=== PATIENT | female | born 1945 | race Caucasian/White ===

== ENCOUNTER 2017-07-05 20:21 | Inpatient (IN) ==
--- OUTSIDE RECORDS SUMMARY | 2017-07-05 20:32 | External Medical Summary ---
:1945 Author Organization [employer] Care Team Providers Name Role Phone Ha Jimenez Provider Role Unavailable Allergies No Known Allergies Problems Problem Type Condition Code Onset Dates Condition Status Problem Family history of diabetes mellitus V18.0 Active Problem Colon polyps 211.3 Active Problem Hyperlipidemia 272.4 Active Medications No Known Medications Results No Known Results Summary Purpose [email or web address] Submission
--- OUTSIDE RECORDS SUMMARY | 2017-07-05 20:32 | External Medical Summary ---
:1945 Author Organization [facility] Address [address] [place] [address] Care Team Providers Name Role Phone Ha Jimenez Unavailable Unavailable PROBLEMS Type Condition ICD9-CM Code [id number] Onset Condition SNOMED Code Code Dates Status Problem Colon polyps 211.3 Active 23788881 Problem Hyperlipidemia 272.4 Active 56746142 Problem Family history of V18.0 Active 062582990 diabetes mellitus Problem Anxiety and F41.8 Active 411819836 depression Problem Depression, F32.9 Active 79923945 unspecified depression type Problem Hyperlipidemia E78.5 Active 06350318 Problem Breast cancer C50.919 Active 277408535 Problem Anxiety F41.9 Active 04355865 Problem Essential I10 Active 00201844 hypertension ALLERGIES No Information ENCOUNTERS Encounter Location Date Diagnosis [facility] [address] [place] [address] Nov, Physicians [facility] [address] [place] [address] [place] [address] Jun, Physicians [facility] [address] [place] [address] [place] [address] Jun, Physicians [facility] [address] [place] [address] [address] [facility] Jun, Physicians [facility] [id number] [place] [address] [address] [facility] Jun, Physicians [facility] [address] [place] [address] [address] Jun, Physicians [facility] [id number] [place] [address] [address] Jun, Physicians [facility] [address] [place] [address] [address] Jun, Anxiety and depression Physicians [facility] [address] F41.8 [facility] [address] May, Physicians [facility] [id number] [place] [address] [address] May, Depression, unspecified Phys[facility] [address] depression type F32.9 and Anxiety F41.9 [facility] [address] [place] [address] Nov, Physicians [facility] [address] [facility] [address] [place] [address] Nov, Well woman exam Z01.419 ; Physicians [facility] PAT[facility]ICIO212 Osteopenia, unspecified location M85.80 ; Essential hypertension I10 ; Hyperlipidemia E78.5 ; Breast cancer C50.919 and Pre-diabetes R73.03 [facility] [address] [place] [address] Nov, Well woman exam Z01.419 ; Physicians [facility] PATRICIO212 Essential hypertension I10 ; Hyperlipidemia E78.5 ; Breast cancer C50.919 ; Pre-diabetes R73.03 and Osteopenia, unspecified location M85.[address] Oct, Physicians YE[facility] PATRICIO212 [facility] [address] [place] [address] Mar, Physicians YEY[facility] PATRICIO212 [facility] [address] [place] [address] Jan, Physicians [facility]ICIO[address] Sep, Chest pain R07.9 [facility] [address] [facility] [address] [place] [address] Sep, Chest pain R07.9 ; Well Physicians [facility] [address] woman exam Z01.419 ; Essential hypertension I10 ; Hyperlipidemia E78.5 ; Menopause Z78.0 ; Immunization due Z23 and Breast cancer C50.919 [facility] [address] [place] [address] Jul, Physicians [facility] [address] Jul, Physicians YEY[facility] PATRICIO212 [facility] [address] [place] [address] Jul, Physicians YEY[facility] PATRICIO212 [facility] [address] [place] [address] Jul, Well woman exam Z01.419 ; Physicians [facility] PATRICIO212 Essential hypertension I10 ; Hyperlipidemia E78.5 ; Menopause Z78.0 ; Immunization due Z23 ; Breast cancer C50.919 and Chest pain R07.9 [facility] [address] [place] [address] Jul, Encounter for general adult Physicians YE[facility] PATRICIO212 medical examination without abnormal findings Z00.00 [facility] [address] [place] [address] Jul, Physicians [facility] [id number] [place] [address] [place] [address] May, Physicians [facility] [address] [place] [address] Mar, Physicians [facility] PATRICIO[address] Jan, Physicians [facility] PAT[facility]ICIO212 [address] Jan, Physicians [facility] PATRICIO212 [address] Jun, Pre-procedural laboratory Physicians YE[facility] PATRICIO212 examination V72.63 and Pre-procedural cardiovascular examination V72.[address] Jun, Physicians [facility] [address] Jun, Pre-procedural Physicians [facility] cardiovascular examination V72.81 and Pre-procedural laboratory examination V72.[address] Mar, Physicians [facility] [address] [facility] [address] [place] [address] Mar, Abnormal mammogram 793.80 Physicians [facility] [id number] [place] [address] Mar, Abnormal mammogram 793.80 Phys[facility] [address] Mar, Abnormal mammogram 793.80 Physicians [facility] PATRICIO212 [address] Mar, Well Woman Exam V72.31 and Physicians [facility]IC[facility] Mammogram Screening V76.[address] Mar, Well Woman Exam V72.31 ; Physicians [facility] Hyperlipidemia 272.4 ; Anxiety 300.00 ; Pre-diabetes 790.29 and Need for prophylactic vaccination against other specified vaccination V03.[address] Mar, Physicians [facility] [address] Mar, Anxiety 300.00 Physicians [facility] [address] Mar, Physicians [facility] [place] [address] [address] [facility] Jan, Serum calcium elevated Physicians YE[facility] PATRICIO212 275.42 and Elevated glucose 790.29 [facility] [address] [facility] Jan, Physicians YEY[facility] PATRICIO212 [facility] [address] [place] [address] Jan, Serum calcium elevated Physicians [facility] 275.42 and Elevated glucose 790.29 [facility] [address] [facility] Jan, Physicians [facility] [place] [address] [place] [address] Jan, Physicians [facility] [place] [address] Jan, Anxiety 300.00 and Physicians [facility] Depression [address] Jan, Physicians [facility] [address] [place] [address] [place] [address] Jan, Physicians [facility] [address] [place] [address] [place] [address] Sep, Physicians [facility] [address] [place] [address] [place] [address] Sep, Hyperlipidemia 272.4 Phys[facility] [address] [place] [address] [place] [address] Sep, HTN (hypertension) 401.9 Physicians [facility] PAT[facility]ICIO212 and Hyperlipidemia 272.4 [facility] [address] [place] [address] Mar, Screening breast Physicians YE[facility] PATRICIO212 examination V76.10 ; Surgical menopause 627.4 ; Hyperlipidemia 272.4 ; Chest pain 786.50 ; Elevated BP 796.2 ; Family history of diabetes mellitus V18.0 and Mammogram Screening V76.12 [facility] [address] [place] [address] Mar, Physicians YE[facility] PATRICIO212 [address] Mar, Hyperlipidemia 272.4 Physicians YE[facility] PATRICIO212 [facility] [address] [place] [address] Mar, Screening breast Physicians YEY[facility] PATRICIO212 examination V76.10 ; Hyperlipidemia 272.4 ; Chest pain 786.50 ; Elevated BP 796.2 ; Surgical menopause 627.4 ; Family history of diabetes mellitus V18.0 and Mammogram Screening V76.12 [facility] [address] Mar, Screening breast Physicians [facility] [address] examination V76.10 ; Hyperlipidemia 272.4 ; Chest pain 786.50 ; Elevated BP 796.2 ; Surgical menopause 627.4 and Family history of diabetes mellitus V18.0 [facility] [address] Mar, Medicare annual wellness Physicians [facility] [address] visit, initial V70.0 [facility] [address] 16 Mar, 2012 Abnormal mammogram; Physicians YE[facility] PATRICIO212 unspecified 793.80 [facility] [address] 13 Mar, 2012 Physicians [facility] [address] [facility] [address] Mar, Physicians [place] [place] [address] [facility] [address] Mar, Physicians [facility] [place] [address] [facility] [address] [place] [address] Mar, Well Woman Exam V72.31 ; Physicians [place] [place] [address] Hyperlipidemia 272.4 ; Family history of diabetes mellitus V18.0 ; Colon polyps 211.3 and Mammogram Screening V76.12 [facility] [address] Mar, Well Woman Exam V72.31 ; Physicians [place] [address] Hyperlipidemia 272.4 ; Family history of diabetes mellitus V18.0 and Colon polyps 211.3 [facility] [address] Mar, Physicians [facility] [address] [facility] [address] Jan, Physicians [facility] [place] [address] [facility] [address] Nov, [place] [id number] [facility] [address] Oct, Physicians [facility] [place] [address] [facility] [address] Oct, Physicians [facility] [address] [facility] [address] Oct, Physicians [facility] [address] [facility] [address] Oct, Physicians [facility] [address] [facility] [address] Jun, Physicians [facility] [address] [facility] [address] 13 May, 2009 [facility] [address] [facility] [address] Mar, Physicians [place] [place] [address] IMMUNIZATIONS No Known Immunizations SOCIAL HISTORY Never Assessed REASON FOR VISIT px PLAN OF CARE VITAL SIGNS MEDICATIONS Unknown Medications RESULTS No Results PROCEDURES No Known procedures INSTRUCTIONS MEDICATIONS ADMINISTERED No Known Medications MEDICAL (GENERAL) HISTORY Type Description Date Medical History Rheumatic Fever at the age of 5 or 6 Medical History Cardiolite Stress Test in 2007, 2015, normal Medical History Echocardiogram August 2002, mitral valve prolapse Medical History Hyperlipdemia,attempted diet control Medical History Depression and Anxiety which she appears to have recovered from, but she went thru a rather rough year and did see Dr. 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 Walker and Dr. Odonnell, rec. yearly breast and chest wall exam and mammo, no chemo or radiation rec and pt declined aromatase inhibitor Surgical History Tonsillectomy and adenoidectomy Surgical History Total Hysterectomy and bladder tie up due to [address] Andujar Surgical History Colonoscopy, normal 2000 Surgical History Colonoscopy. Repeat 10 years, with Dr. Crews in 12/22/20102010, polyp biopsied Surgical History laser done on varicose veins x 2 - Dr.Paul Burgos Surgical History Right breast simple mastectomy - Dr. Dominic Walker 06/23/14 Hospitalization History Hysterectomy & bladder tie up 1997 Hospitalization History child x3 Hospitalization History [facility] - Right Mastectomy - Dr. Ag Walker, 06/23-06/24/14 overnight stay
--- OUTSIDE RECORDS SUMMARY | 2017-07-05 20:32 | External Medical Summary ---
:1945 Author Organization [employer] Care Team Providers Name Role Phone Ha Jimenez Provider Role Unavailable Allergies, Adverse Reactions, Alerts Substance Reaction Event Type N.K.D.A. Info Not Available Non Drug Allergy Problems Problem Type Condition Code Onset Dates Condition Status Problem Family history of diabetes mellitus V18.0 Active Problem Colon polyps 211.3 Active Problem Hyperlipidemia 272.4 Active Assessment Encounter for general adult medical Z00.00 Active examination without abnormal findings Medications Medication Code Code Instructions Start End Status Dosage System Date Date Sertraline HCl [facility] 76081995153 100MG TAKE ONE TABLET BY MOUTH ONCE DAILY Simvastatin [facility] 63760181731 10MG TAKE ONE TABLET BY MOUTH ONCE DAILY IN THE EVENING Hydrochlorothiazide [facility] 37430168019 25MG TAKE ONE TABLET BY MOUTH ONCE DAILY Aspirin [facility] [address]-14 81 MG Orally 1 tablet Once a day Procedures Procedure Coding System Code Date Medicare Annual [place], Subsequent visit CPT-4 G0439 August 12, 2015 Vital Signs Date/Time: August 12, 2015 Blood Pressure Systolic 133 mm Hg Height 65.2 in Weight 153.2 lbs BMI 25.33 Index Oximetry 97 % Cardiac Monitoring Heart Rate 81 /min Blood Pressure Diastolic 88 mm Hg Results No Known Results Summary Purpose [employer] Submission
--- OUTSIDE RECORDS SUMMARY | 2017-07-05 20:32 | External Medical Summary ---
:1945 Author Organization [facility] Address [address] [place] [address] Care Team Providers Name Role Phone Ha Jimenez Unavailable Unavailable PROBLEMS Type Condition ICD9-CM Code [id number] Onset Condition SNOMED Code Code Dates Status Problem Essential I10 Active 46674067 hypertension Problem Hyperlipidemia E78.5 Active 80386758 Problem Family history of V18.0 Active 532062071 diabetes mellitus Problem Colon polyps 211.3 Active 04760686 Problem Breast cancer C50.919 Active 181245349 Problem Hyperlipidemia 272.4 Active 20886721 ALLERGIES Unknown Allergies SOCIAL HISTORY No smoking Hx information available PLAN OF CARE VITAL SIGNS MEDICATIONS Unknown Medications RESULTS No Results PROCEDURES No Known procedures IMMUNIZATIONS No Known Immunizations
--- OUTSIDE RECORDS SUMMARY | 2017-07-05 20:32 | External Medical Summary ---
:1945 Author Organization [facility] Address [address] [place] [address] Care Team Providers Name Role Phone Ha Jimenez Unavailable Unavailable PROBLEMS Type Condition ICD9-CM Code [id number] Onset Condition SNOMED Code Code Dates Status Problem Family history of V18.0 Active 186276121 diabetes mellitus Problem Colon polyps 211.3 Active 42436366 Problem Depression, F32.9 Active 81853311 unspecified depression type Problem Anxiety F41.9 Active 45298537 Problem Breast cancer C50.919 Active 117373324 Problem Hyperlipidemia 272.4 Active 35332497 Problem Essential I10 Active 69517309 hypertension Problem Hyperlipidemia E78.5 Active 97748373 ALLERGIES No Known Allergies SOCIAL HISTORY Never Assessed PLAN OF CARE Activity Details Follow Up 4 Weeks Reason: VITAL SIGNS Weight 138.0 lbs 2017-05-03 Height 65.2 in 2017-05-03 Heart Rate 77 /min 2017-05-03 Oximetry 96 % 2017-05-03 BMI 22.82 kg/m2 2017-05-03 Blood pressure systolic 148 mm Hg 2017-05-03 Blood pressure diastolic 82 mm Hg 2017-05-03 MEDICATIONS Medication Instructions Dosage Frequency Start End Duration Status Date Date Aspirin 81 MG Orally Once a 1 tablet 24h 30 day(s) Active day Hydrochlorothiazide TAKE ONE 90 Active 25MG TABLET BY MOUTH ONCE DAILY Xanax 0.25 MG Orally Three 1 tablet May, as Active Times Daily 2018 needed Simvastatin 10MG take one 24h Active tablet by mouth once daily in the evening Temazepam 15 MG Orally Q HS 1 capsule May, as Active at 2018 needed bedtime as needed RESULTS No Results PROCEDURES No Known procedures IMMUNIZATIONS No Known Immunizations MEDICAL (GENERAL) HISTORY Type Description Date Medical [...]
--- OUTSIDE RECORDS SUMMARY | 2017-07-05 20:32 | External Medical Summary ---
:1945 Author Organization [facility] [place] Address [address] [place] [address] Care Team Providers Name Role Phone Ha Jimenez Unavailable Unavailable PROBLEMS Type Condition ICD9-CM Code [id number] Onset Condition SNOMED Code Code Dates Status Problem Colon polyps 211.3 Active 05686192 Problem Hyperlipidemia 272.4 Active 76095186 Problem Family history of V18.0 Active 125544542 diabetes mellitus Problem Anxiety and F41.8 Active 163472064 depression Problem Depression, F32.9 Active 62670103 unspecified depression type Problem Hyperlipidemia E78.5 Active 22703304 Problem Breast cancer C50.919 Active 995490652 Problem Anxiety F41.9 Active 89211188 Problem Essential I10 Active 85345600 hypertension ALLERGIES No Information ENCOUNTERS Encounter Location Date Diagnosis [facility] [address] [place] [address] Nov, Physicians [place], [address] [place] [address] Jun, Physicians [place], [address] [place] [address] Jun, Physicians [place], [address] [place] [address] Jun, Physicians YEYO PATRICIO [address] [place] [address] [place] [address] Jun, Anxiety and depression Physicians [place] [address] F41.8 [facility] [address] May, Physicians [place], [address] [place] [address] May, Depression, unspecified Physicians [place] [address] depression type F32.9 and Anxiety F41.9 [facility] [address] Nov, Physicians YEYO PATRICIO [address] [place] [address] [address] Nov, Well woman exam Z01.419 ; Physicians [place] ME[place] [id number] Osteopenia, unspecified location M85.80 ; Essential hypertension I10 ; Hyperlipidemia E78.5 ; Breast cancer C50.919 and Pre-diabetes R73.03 [facility] [address] Nov, Well woman exam Z01.419 ; Physicians YEYO PATRICIO212 Essential hypertension I10 ; Hyperlipidemia E78.5 ; Breast cancer C50.919 ; Pre-diabetes R73.03 and Osteopenia, unspecified location M85.80 [facility] [address] Oct, Physicians YEYO PATRICIO212 [facility] [address] [facility] Mar, Physicians YEYO PATRICIO212 [facility] [address] [facility] Jan, Physicians YEYO PATRICIO212 [facility] [address] [place] [address] Sep, Chest pain R07.9 Physicians YEYO PATRICIO212 [facility] [address] [facility] Sep, Chest pain R07.9 ; Well Physicians YEYO PATRICIO212 woman exam Z01.419 ; Essential hypertension I10 ; Hyperlipidemia E78.5 ; Menopause Z78.0 ; Immunization due Z23 and Breast cancer C50.919 [facility] [address] Jul, Physicians YEYO PATRICIO212 [facility] [address] [place] [address] Jul, Physicians YEYO PATRICIO212 [facility] [address] Jul, Physicians YEYO PATRICIO212 [facility] [address] Jul, Well woman exam Z01.419 ; Physicians YEYO PATRICIO212 Essential hypertension I10 ; Hyperlipidemia E78.5 ; Menopause Z78.0 ; Immunization due Z23 ; Breast cancer C50.919 and Chest pain R07.9 [facility] [address] 13 Jul, 2015 Encounter for general adult Physicians YEYO PATRICIO medical examination without abnormal findings Z00.00 [facility] [address] 11 Jul, 2015 Physicians YEYO PATRICIO [facility] [address] [facility] May, Physicians YEYO PATRICIO212 [facility] [address] [place] [address] Mar, Physicians YEYO PATRICIO [facility] [address] [place] [address] Jan, Physicians YEYO PATRICIO [address] [place] [address] [place] [address] Jan, Physicians YEYO PATRICIO [address] Jun, Pre-procedural laboratory Physicians YEYO PATRICIO examination V72.63 and Pre-procedural cardiovascular examination V72.[address] Jun, Physicians YEYO PATRICIO212 [address] Jun, Pre-procedural Physicians YEYO PATRICIO212 cardiovascular examination V72.81 and Pre-procedural laboratory examination V72.[address] Mar, Physicians YEYO PATRICIO [address] [facility] [address] [place] [address] Mar, Abnormal mammogram 793.80 Physicians YEYO PATRICIO[address] [place] [address] Mar, Abnormal mammogram 793.80 Physicians YEYO PATRICIO [address] [place] [address] [place] [address] Mar, Abnormal mammogram 793.80 Physicians YEYO PATRICIO[address] [place] [address] [place] [address] Mar, Well Woman Exam V72.31 and Physicians YEYO PATRICIO Mammogram Screening V76.[address] Mar, Well Woman Exam V72.31 ; Physicians YEYO PATRICIO212 Hyperlipidemia 272.4 ; Anxiety 300.00 ; Pre-diabetes 790.29 and Need for prophylactic vaccination against other specified vaccination V03.[address] Mar, Physicians YEYO PATRICIO212 [address] Mar, Anxiety 300.00 Physicians YEYO PATRICIO212 [address] Mar, Physicians YEYO PATRICIO212 [address] Jan, Serum calcium elevated Physicians YEYO PATRICIO 275.42 and Elevated glucose 790.[address] Jan, Physicians [place], [place] [address] [place] [address] [place] [address] Jan, Serum calcium elevated Physicians YEYO PATRICIO [facility] 275.42 and Elevated glucose 790.29 [facility] [address] [place] [address] Jan, Physicians YEYO PATRICIO [address] [place] [address] Jan, Physicians YEYO PATRICIO [address] [place] [address] Jan, Anxiety 300.00 and Physicians YEYO PATRICIO [address] Depression [address] Jan, Physicians YEYO PATRICIO [address] [place] [address] Jan, Physicians YEYO PATRICIO [address] [place] [address] Sep, Physicians YEYO PATRICIO [address] [place] [address] Sep, Hyperlipidemia 272.4 Physicians YEYO PATRICIO [address] [place] [address] [place] [address] Sep, HTN (hypertension) 401.9 Physicians YEYO PATRICIO [facility] and Hyperlipidemia 272.4 [facility] [address] [place] [address] Mar, Screening breast Physicians YEYO PATRICIO [facility] examination V76.10 ; Surgical menopause 627.4 ; Hyperlipidemia 272.4 ; Chest pain 786.50 ; Elevated BP 796.2 ; Family history of diabetes mellitus V18.0 and Mammogram Screening V76.[address] Mar, Physicians YEYO PATRICIO [address] [place] [address] Mar, Hyperlipidemia 272.4 Physicians YEYO PATRICIO [address] [place] [address] [place] [address] Mar, Screening breast Physicians YEYO PATRICIO [facility] examination V76.10 ; Hyperlipidemia 272.4 ; Chest pain 786.50 ; Elevated BP 796.2 ; Surgical menopause 627.4 ; Family history of diabetes mellitus V18.0 and Mammogram Screening V76.12 [facility] [address] [place] [address] Mar, Screening breast Physicians YEYO PATRICIO [facility] examination V76.10 ; Hyperlipidemia 272.4 ; Chest pain 786.50 ; Elevated BP 796.2 ; Surgical menopause 627.4 and Family history of diabetes mellitus V18.0 [facility] [address] Mar, Medicare annual wellness Physicians YEYO PATRICIO [address] visit, initial V70.0 [facility] [address] 16 Mar, 2012 Abnormal mammogram; Physicians YEYO PATRICIO212 unspecified 793.80 [facility] [address] Mar, Physicians YEYO PATRICIO [address] [facility] [address] Mar, Physicians YEYO PATRICIO [facility] [address] Mar, Physicians YEYO PATRICIO [address] [facility] [address] Mar, Well Woman Exam V72.31 ; Physicians YEYO PATRICIO212 Hyperlipidemia 272.4 ; Family history of diabetes mellitus V18.0 ; Colon polyps 211.3 and Mammogram Screening V76.12 [facility] [address] Mar, Well Woman Exam V72.31 ; Physicians YEYO PATRICIO [address] Hyperlipidemia 272.4 ; Family history of diabetes mellitus V18.0 and Colon polyps 211.3 [facility] [address] Mar, Physicians YEYO PATRICIO [address] [facility] [address] Jan, Physicians YEYO PATRICIO [address] [facility] [address] Nov, [place] YEYO MEIER [phone] [facility] [address] Oct, Physicians YEYO PATRICIO [address] [facility] [address] Oct, Physicians YEYO PATRICIO [address] [facility] [address] Oct, Physicians [place]IC[place] [address] [facility] [address] Oct, Physicians YEYO PATRICIO [address] [facility] [address] Jun, Physicians YEYO PATRICIO [address] [facility] [address] May, Physicians YEYO PATRICIO [address] [facility] [address] Mar, Physicians YEYO PATRICIO [address] IMMUNIZATIONS No Known Immunizations SOCIAL HISTORY Never Assessed REASON FOR VISIT Possible Dementia PLAN OF CARE VITAL SIGNS MEDICATIONS Unknown [...]
--- OUTSIDE RECORDS SUMMARY | 2017-07-05 20:32 | External Medical Summary ---
:1945 Author Organization [facility] [place] Address [address] [place] [address] Care Team Providers Name Role Phone Ha Jimenez Unavailable Unavailable PROBLEMS Type Condition ICD9-CM Code UFR59-SS Onset Condition SNOMED Code Code Dates Status Problem Colon polyps 211.3 Active 95587656 Problem Hyperlipidemia 272.4 Active 69744014 Problem Family history of V18.0 Active 907252130 diabetes mellitus Problem Anxiety and F41.8 Active 055896479 depression Problem Depression, F32.9 Active 80458792 unspecified depression type Problem Hyperlipidemia E78.5 Active 14567596 Problem Breast cancer C50.919 Active 020271855 Problem Anxiety F41.9 Active 51174849 Problem Essential I10 Active 21220904 hypertension ALLERGIES No Information ENCOUNTERS Encounter Location Date Diagnosis [address] Nov, Physicians [place] [id number] [place] [address] Jun, Physicians [place], [address] Jun, Anxiety and depression Physicians [place] [address] F[address] May, Physicians YEYO PATRICIO [id number] [place] [address] May, Depression, unspecified [place] [address] depression type F32.9 and Anxiety F41.[address] Nov, Physicians [place]RIC[place] [address] Nov, Well woman exam Z01.419 ; Physicians YEY[place] PATRIC[place] [address] Osteopenia, unspecified location M85.80 ; Essential hypertension I10 ; Hyperlipidemia E78.5 ; Breast cancer C50.919 and Pre-diabetes R73.[address] Nov, Well woman exam Z01.419 ; Physicians YEYO PATRICIO212 Essential hypertension I10 ; Hyperlipidemia E78.5 ; Breast cancer C50.919 ; Pre-diabetes R73.03 and Osteopenia, unspecified location M85.80 [facility] [address] Oct, Physicians YEYO PATRICIO212 [facility] [address] Mar, Physicians YEYO PATRICIO212 [facility] [address] [facility] Jan, Physicians YEYO PATRICIO [facility] [address] [facility] Sep, Chest pain R07.9 Physicians YEYO PATRICIO212 [facility] [address] Sep, Chest pain R07.9 ; Well Physicians YEYO PATRICIO212 woman exam Z01.419 ; Essential hypertension I10 ; Hyperlipidemia E78.5 ; Menopause Z78.0 ; Immunization due Z23 and Breast cancer C50.919 [facility] [address] Jul, Physicians YEYO PATRICIO212 [facility] [address] [facility] Jul, Physicians YEYO PATRICIO212 [facility] [address] Jul, Physicians YEYO PATRICIO212 [facility] [address] Jul, Well woman exam Z01.419 ; Physicians YEYO PATRICIO212 Essential hypertension I10 ; Hyperlipidemia E78.5 ; Menopause Z78.0 ; Immunization due Z23 ; Breast cancer C50.919 and Chest pain R07.9 [facility] [address] 13 Jul, 2015 Encounter for general adult Physicians YEYO PATRICIO medical examination without abnormal findings Z00.00 [facility] [address] 11 Jul, 2015 Physicians YEYO PATRICIO [facility] [address] [facility] May, Physicians YE[facility]O PATRICIO [facility] [address] Mar, Physicians YEYO PATRICIO [facility] [address] Jan, Physicians YEYO PATRICIO [facility] [address] [place] [address] Jan, Physicians [place], [place] [address] [place] [address] [place] [address] Jun, Pre-procedural laboratory Physicians YEYO PATRICIO examination V72.63 and Pre-procedural cardiovascular examination V72.81 [facility] [address] [place] [address] Jun, Physicians YEYO PATRICIO212 [address] Jun, Pre-procedural Physicians YEYO PATRICIO cardiovascular examination V72.81 and Pre-procedural laboratory examination V72.[address] Mar, Physicians YEYO PATRICIO[address] [place] [address] Mar, Abnormal mammogram 793.80 Physicians YEYO PATRICIO212 [address] Mar, Abnormal mammogram 793.80 Physicians YEYO PATRICIO[address] [place] [address] Mar, Abnormal mammogram 793.80 Physicians YEYO PATRICIO212 [address] Mar, Well Woman Exam V72.31 and Physicians YEYO PATRICIO Mammogram Screening V76.12 [facility] [address] [place] [address] Mar, Well Woman Exam V72.31 ; Physicians YEYO PATRICIO Hyperlipidemia 272.4 ; Anxiety 300.00 ; Pre-diabetes 790.29 and Need for prophylactic vaccination against other specified vaccination V03.[address] Mar, Physicians YEYO PATRICIO212 [address] Mar, Anxiety 300.00 Physicians YEYO PATRICIO212 [address] Mar, Physicians YEYO PATRICIO212 [facility] [address] [place] [address] Jan, Serum calcium elevated Physicians YEYO PATRICIO 275.42 and Elevated glucose 790.[address] Jan, Physicians YEYO PATRICIO [address] Jan, Serum calcium elevated Physicians YEYO PATRICIO 275.42 and Elevated glucose 790.[address] Jan, Physicians YEYO PATRICIO212 [address] Jan, Physicians YEYO PATRICIO [address] Jan, Anxiety 300.00 and Physicians YEYO PATRICIO Depression [address] Jan, Physicians YEYO PATRICIO [address] Jan, Physicians YEYO PATRICIO [address] Sep, Physicians YEYO PATRICIO [address] Sep, Hyperlipidemia 272.4 Physicians YEYO PATRICIO [address] Sep, HTN (hypertension) 401.9 Physicians YEYO PATRICIO and Hyperlipidemia 272.[address] Mar, Screening breast Physicians YEYO PATRICIO examination V76.10 ; Surgical menopause 627.4 ; Hyperlipidemia 272.4 ; Chest pain 786.50 ; Elevated BP 796.2 ; Family history of diabetes mellitus V18.0 and Mammogram Screening V76.[address] Mar, Physicians YEYO PATRICIO [address] Mar, Hyperlipidemia 272.4 Physicians YEYO PATRICIO [address] Mar, Screening breast Physicians YEYO PATRICIO examination V76.10 ; Hyperlipidemia 272.4 ; Chest pain 786.50 ; Elevated BP 796.2 ; Surgical menopause 627.4 ; Family history of diabetes mellitus V18.0 and Mammogram Screening V76.[address] Mar, Screening breast Physicians YEYO PATRICIO examination V76.10 ; Hyperlipidemia 272.4 ; Chest pain 786.50 ; Elevated BP 796.2 ; Surgical menopause 627.4 and Family history of diabetes mellitus V18.[address] Mar, Medicare annual wellness Physicians YEYO PATRICIO visit, initial V70.[address] 16 Mar, 2012 Abnormal mammogram; Physicians YEYO PATRICIO212 unspecified 793.80 [facility] [address] Mar, Physicians YEYO PATRICIO [address] [place] [address] [address] Mar, Physicians YEYO PATRICIO [address] [place] [address] [address] Mar, Physicians YEYO PATRICIO [address] [place] [address] [address] Mar, Well Woman Exam V72.31 ; Physicians YEYO PATRICIO212 Hyperlipidemia 272.4 ; Family history of diabetes mellitus V18.0 ; Colon polyps 211.3 and Mammogram Screening V76.12 [facility] [address] Mar, Well Woman Exam V72.31 ; Physicians YEYO PATRICIO212 Hyperlipidemia 272.4 ; Family history of diabetes mellitus V18.0 and Colon polyps 211.3 [facility] [address] Mar, Physicians YEYO PATRICIO [address] [facility] [address] Jan, Physicians YEYO PATRICIO [address] [facility] [address] Nov[facility] [address] [facility] [address] Oct, Physicians YEYO PATRICIO [address] [place] [address] [address] [facility] Oct, Physicians YEYO PATRICIO [address] [place] [address] [address] Oct, Physicians YEYO PATRICIO [address] [facility] [address] Oct, Physicians YEYO PATRICIO [address] [facility] [address] [facility] Jun, Physicians YEYO PATRICIO [address] [facility] [address] May, Physicians YEYO PATRICIO [address] [facility] [address] Mar, Physicians YEYO PATRICIO212 IMMUNIZATIONS No Known Immunizations SOCIAL HISTORY Never Assessed REASON FOR VISIT refill PLAN OF CARE VITAL SIGNS MEDICATIONS Medication Instructions Dosage Frequency Start End Date Duration Status Date Xanax 0.25 MG Orally Three 1 tablet May, as needed Active Times Daily 2017 RESULTS No Results PROCEDURES No Known procedures INSTRUCTIONS MEDICATIONS ADMINISTERED No Known Medications MEDICAL (GENERAL) HISTORY Type Description Date Medical History Rheumatic Fever at the age of 5 or 6 Medical History Cardiolite Stress Test in 2007, 2016, normal Medical History Echocardiogram August 2002, mitral [...]
--- OUTSIDE RECORDS SUMMARY | 2017-07-05 20:33 | External Medical Summary ---
:1945 Author Organization [facility] Address [address] [place] [address] Care Team Providers Name Role Phone Ha Jimenez Unavailable Unavailable PROBLEMS Type Condition ICD9-CM Code [id number] Onset Condition SNOMED Code Code Dates Status Problem Essential I10 Active 75160993 hypertension Problem Hyperlipidemia E78.5 Active 04376402 Problem Family history of V18.0 Active 235558068 diabetes mellitus Problem Colon polyps 211.3 Active 06597666 Problem Breast cancer C50.919 Active 296322773 Problem Hyperlipidemia 272.4 Active 63989853 ALLERGIES Unknown Allergies SOCIAL HISTORY No smoking Hx information available PLAN OF CARE Activity Details Follow Up prn Reason: VITAL SIGNS MEDICATIONS Unknown Medications RESULTS No Results PROCEDURES Procedure Date Ordered Related Diagnosis Body Site DEXA BONE DENSITY Nov 30, 2016 IMMUNIZATIONS No Known Immunizations
--- OUTSIDE RECORDS SUMMARY | 2017-07-05 20:33 | External Medical Summary ---
:1945 Author Organization [employer] Care Team Providers Name Role Phone Ha Jimenez Provider Role Unavailable Allergies, Adverse Reactions, Alerts Substance Reaction Event Type N.K.D.A. Info Not Available Non Drug Allergy Problems Problem Type Condition Code Onset Dates Condition Status Assessment Menopause Z78.0 Active Assessment Essential hypertension I10 Active Assessment Hyperlipidemia E78.5 Active Problem Hyperlipidemia E78.5 Active Problem Breast cancer C50.919 Active Problem Essential hypertension I10 Active Problem Colon polyps 211.3 Active Assessment Well woman exam Z01.419 Active Problem Hyperlipidemia 272.4 Active Problem Family history of diabetes mellitus V18.0 Active Assessment Chest pain R07.9 Active Assessment Breast cancer C50.919 Active Assessment Immunization due Z23 Active Medications Medication Code Code Instructions Start End Status Dosage System Date Date Hydrochlorothiazide [facility] 90376759945 25MG Once a take one day tablet by mouth once daily Simvastatin [facility] 32657538959 10MG Once a take one day tablet by mouth once daily in the evening Aspirin [facility] [address]-34 81 MG Orally 1 tablet Once a day Sertraline HCl [facility] 57191466924 100MG Once a take one day tablet by mouth once daily Procedures Procedure Coding System Code Date COMP PROFILE CPT-4 37806 August 21, 2015 LIPID PROFILE CPT-4 21500 August 21, 2015 CBC CPT-4 66759 August 21, 2015 EKG WITH INTERPRETAT CPT-4 97117 August 21, 2015 DXA BONE DENSITY/PERIPHERAL CPT-4 26907 August 21, 2015 Prevnar 13 CPT-4 44189 August 21, 2015 CHEST XRAY 2 VIEW CPT-4 37118 August 21, 2015 PREV MED SEREST 65 CPT-4 32142 August 21, 2015 Administration Fee 0-18 yrs for 1st injection CPT-4 54135 August 21, 2015 Vital Signs Date/Time: August 21, 2015 Blood Pressure Systolic 180 mm Hg Height 65.2 in Weight 154.8 lbs BMI 25.60 Index Cardiac Monitoring Heart Rate 73 /min Blood Pressure Diastolic 81 mm Hg Results Name Result Date Reference Range Unit Abnormality Flag CBC ----BA# 0.0 [id number] 0.0-0.1 X10^3/UL ----BA% 0.9 52655210 0.0-1.0 % ----PLT 220 83593238 130-400 X10^3 ----NE# 2.8 15438069 1.4-6.5 X10^3/UL ----RDW 11.7 [id number] 11.5-15.5 % ----LY% 24.2 60958089 20.5-51.1 % ----MCHC 33.2 81362974 32.0-35.0 G/DL ----LY# 1.1 [id number] 1.2-3.4 X10^3/UL L ----MCH 32.8 41234093 27.0-33.0 PG ----MO% 9.0 69440461 1.7-9.3 % ----MCV 98.8 98215328 81.0-96.0 FL H ----MO# 0.4 [id number] 0.1-0.6 X10^3/UL ----MPV 11.4 89565165 8.9-12.7 FL ----HCT 40.1 56800105 36.0-46.0 % ----EO% 3.4 25853224 0.0-3.0 % H ----WBC 4.4 69349974 4.0-10.0 X10^3/UL ----EO# 0.2 [id number] 0.0-0.2 X10^3/UL ----HGB 13.3 14331140 11.6-16.0 G/DL ----NE% 62.3 97484368 42.2-75.2 % ----RBC 4.06 64006140 3.90-5.20 X10^6 COMPREHENSIVE CHEM PROFILE ----ALK PHOS 73 76374541 34-114 U/L ----eGFR If Non 82 [id number] >60 ml/min/1.73m^2 Am ----eGFR If Am 100 [id number] >60 ml/min/1.73m^2 ----ALT/SGPT 20 00598457 5-40 U/L ----SODIUM 140 53367956 133-145 MMOL/L ----AST/SGOT 33 16099050 5-40 U/L ----TOTAL BILI 0.63 88872317 0.00-1.00 MG/DL ----CALCIUM 9.7 64373600 8.7-10.3 MG/DL ----GLUCOSE 94 27461657 60-99 MG/DL ----GLOBULIN 2.6 85947097 2.0-4.4 G/DL ----ALBUMIN 4.4 55775779 3.2-5.2 G/DL ----CREATININE 0.7 70851455 0.4-1.1 MG/DL ----TOTAL PROTEIN 7.0 61840904 5.9-8.4 G/DL ----BUN 13 21919229 8-23 MG/DL ----CO2 29 81144026 23-31 MMOL/L ----POTASSIUM 3.9 50557321 3.3-5.1 MMOL/L ----CHLORIDE 99 22445215 96-108 MMOL/L X ray : Chest 2 views EKG LIPID PROFILE ----CHOL/HDL 2.2 92049759 4.0-6.7 RATIO L ----LDL-DIRECT 103 96529248 0-99 MG/DL H ----HDL-DIRECT 79 07670275 45-65 MG/DL H ----TRIGLYCERIDE 57 93844730 30-150 MG/DL ----CHOLESTEROL 176 59291840 50-200 MG/DL Immunizations Vaccine Administration Date Prevnar August 21, 2015 Summary Purpose [employer] Submission
--- OUTSIDE RECORDS SUMMARY | 2017-07-05 20:33 | External Medical Summary ---
:1945 Author Organization [employer] Care Team Providers Name Role Phone Ha Jimenez Provider Role Unavailable Allergies No Known Allergies Problems Problem Type Condition Code Onset Dates Condition Status Problem Family history of diabetes mellitus V18.0 Active Problem Colon polyps 211.3 Active Problem Hyperlipidemia 272.4 Active Medications No Known Medications Results No Known Results Summary Purpose [employer] Submission
--- OUTSIDE RECORDS SUMMARY | 2017-07-05 20:33 | External Medical Summary ---
:1945 Author Organization [employer] Care Team Providers Name Role Phone Ha Jimenez Provider Role Unavailable Allergies No Known Allergies Problems Problem Type Condition ICD-9 Code Onset Dates Condition Status Problem Family history of diabetes V18.0 Active mellitus Problem Colon polyps 211.3 Active Problem Hyperlipidemia 272.4 Active Assessment Pre-procedural cardiovascular V72.81 Active examination Assessment Pre-procedural laboratory V72.63 Active examination Medications No Known Medications Results No Known Results Summary Purpose [employer] Submission
--- OUTSIDE RECORDS SUMMARY | 2017-07-05 20:33 | External Medical Summary ---
:1945 Author Organization [employer] Care Team Providers Name Role Phone Ha Jimenez Provider Role Unavailable Allergies No Known Allergies Problems Problem Type Condition Code Onset Dates Condition Status Problem Hyperlipidemia E78.5 Active Problem Breast cancer C50.919 Active Problem Essential hypertension I10 Active Problem Colon polyps 211.3 Active Problem Hyperlipidemia 272.4 Active Problem Family history of diabetes mellitus V18.0 Active Medications No Known Medications Results No Known Results Summary Purpose [employer] Submission
--- OUTSIDE RECORDS SUMMARY | 2017-07-05 20:33 | External Medical Summary ---
:1945 Author Organization [facility] Address [address] [place] [address] Care Team Providers Name Role Phone Ha Jimenez Unavailable Unavailable PROBLEMS Type Condition ICD9-CM Code [id number] Onset Condition SNOMED Code Code Dates Status Problem Essential I10 Active 71443298 hypertension Problem Hyperlipidemia E78.5 Active 72763192 Problem Family history of V18.0 Active 731808784 diabetes mellitus Problem Colon polyps 211.3 Active 12916997 Problem Breast cancer C50.919 Active 283325948 Problem Hyperlipidemia 272.4 Active 47966148 ALLERGIES Unknown Allergies SOCIAL HISTORY No smoking Hx information available PLAN OF CARE VITAL SIGNS MEDICATIONS Unknown Medications RESULTS No Results PROCEDURES No Known procedures IMMUNIZATIONS No Known Immunizations
--- OUTSIDE RECORDS SUMMARY | 2017-07-05 20:33 | External Medical Summary ---
[...] history of diabetes mellitus V18.0 Active Medications Medication Code Code Instructions Start End Date Status Dosage System Date Sertraline HCl [facility] [id number] 100MG Orally take one Once a day tablet by mouth once daily Results No Known Results Summary Purpose [employer] Submission
--- OUTSIDE RECORDS SUMMARY | 2017-07-05 20:33 | External Medical Summary ---
:1944 Author Organization [employer] Care Team Providers Name Role Phone Ha Jimenez Provider Role Unavailable Allergies No Known Allergies Problems Problem Type Condition ICD-9 Code Onset Dates Condition Status Problem Family history of diabetes V18.0 Active mellitus Problem Colon polyps 211.3 Active Problem Hyperlipidemia 272.4 Active Medications No Known Medications Results No Known Results Summary Purpose [employer] Submission
--- OUTSIDE RECORDS SUMMARY | 2017-07-05 20:33 | External Medical Summary ---
:1945 Author Organization [employer] Care Team Providers Name Role Phone Ha Jimenez Provider Role Unavailable Allergies No Known Allergies Problems Problem Type Condition Code Onset Dates Condition Status Problem Family history of diabetes mellitus V18.0 Active Problem Colon polyps 211.3 Active Problem Hyperlipidemia 272.4 Active Medications No Known Medications Results No Known Results Summary Purpose [email or web address] Submission
--- OUTSIDE RECORDS SUMMARY | 2017-07-05 20:33 | External Medical Summary ---
:1944 Author Organization [employer] Care Team Providers Name Role Phone Ha Jimenez Provider Role Unavailable Allergies No Known Allergies Problems Problem Type Condition ICD-9 Code Onset Dates Condition Status Problem Family history of diabetes V18.0 Active mellitus Problem Colon polyps 211.3 Active Problem Hyperlipidemia 272.4 Active Medications No Known Medications Results No Known Results Summary Purpose [employer] Submission
--- OUTSIDE RECORDS SUMMARY | 2017-07-05 20:33 | External Medical Summary ---
:1944 Author Organization [facility] Care Team Providers Name Role Phone Ha Jimenez Provider Role Unavailable Allergies No Known Allergies Problems Problem Type Condition ICD-9 Code Onset Dates Condition Status Problem Family history of diabetes V18.0 Active mellitus Problem Colon polyps 211.3 Active Problem Hyperlipidemia 272.4 Active Assessment Abnormal mammogram 793.80 Active Medications No Known Medications Procedures Procedure Coding System Code Date COMPUTER AIDED DX CPT-4 67173 Apr 15, 2014 DX MAMMO, UNILATERAL CPT-4 27145 Apr 15, 2014 Results No Known Results Summary Purpose [employer] Submission
--- OUTSIDE RECORDS SUMMARY | 2017-07-05 20:33 | External Medical Summary ---
:1944 Author Organization [employer] Care Team Providers Name Role Phone Ha Jimenez Provider Role Unavailable Allergies No Known Allergies Problems Problem Type Condition ICD-9 Code Onset Dates Condition Status Problem Family history of diabetes V18.0 Active mellitus Problem Colon polyps 211.3 Active Problem Hyperlipidemia 272.4 Active Medications No Known Medications Results No Known Results Summary Purpose [employer] Submission
--- OUTSIDE RECORDS SUMMARY | 2017-07-05 20:33 | External Medical Summary ---
:1945 Author Organization [facility] Address [address] [place] [address] Care Team Providers Name Role Phone Ha Jimenez Unavailable Unavailable PROBLEMS Type Condition ICD9-CM Code [id number] Onset Condition SNOMED Code Code Dates Status Problem Colon polyps 211.3 Active 08914987 Problem Hyperlipidemia 272.4 Active 65972062 Problem Family history of V18.0 Active 224130454 diabetes mellitus Problem Anxiety and F41.8 Active 333156452 depression Problem Depression, F32.9 Active 34063954 unspecified depression type Problem Hyperlipidemia E78.5 Active 66214225 Problem Breast cancer C50.919 Active 877786458 Problem Anxiety F41.9 Active 94328433 Problem Essential I10 Active 31773677 hypertension ALLERGIES No Known Allergies ENCOUNTERS Encounter Location Date Diagnosis [address] Nov, [facility] [id number] [place] [address] [place] [address] Jun, Anxiety and depression [facility] [address] May, [facility] [address] May, Depression, unspecified [facility] [address] depression type F32.9 and Anxiety F41.[address] Nov, [facility] [address] Nov, Well woman exam Z01.419 ; [facility] [place] [place] [address] Osteopenia, unspecified location M85.80 ; Essential hypertension I10 ; Hyperlipidemia E78.5 ; Breast cancer C50.919 and Pre-diabetes R73.03 [facility] [address] [place] [address] Nov, Well woman exam Z01.419 ; [facility] [place] [place] [address] Essential hypertension I10 ; Hyperlipidemia E78.5 ; Breast cancer C50.919 ; Pre-diabetes R73.03 and Osteopenia, unspecified location M85.80 [facility] [address] Oct, [facility]212 [facility] [address] [place] [address] Mar, [facility]212 [facility] [address] [facility] Jan, [facility]212 [facility] [address] [place] [address] Sep, Chest pain R07.9 [facility]212 [facility] [address] Sep, Chest pain R07.9 ; Well [facility]212 woman exam Z01.419 ; Essential hypertension I10 ; Hyperlipidemia E78.5 ; Menopause Z78.0 ; Immunization due Z23 and Breast cancer C50.919 [facility] [address] Jul, [facility]212 [facility] [address] [place] [address] Jul, [facility]212 [facility] [address] [place] [address] Jul, [facility] [address] [facility] [address] [facility] Jul, Well woman exam Z01.419 ; [facility] [place] [address] Essential hypertension I10 ; Hyperlipidemia E78.5 ; Menopause Z78.0 ; Immunization due Z23 ; Breast cancer C50.919 and Chest pain R07.9 [facility] [address] Jul, Encounter for general adult [facility] [address] medical examination without abnormal findings Z00.00 [facility] [address] [place] [address] Jul, Phys[facility]212 [facility] [address] [facility] May, [facility] [address] Mar, [facility] [address] [place] [address] Jan, [facility] [address] [place] [address] Jan, Phys[facility]212 [facility] [address] [place] [address] Jun, Pre-procedural laboratory [facility]212 examination V72.63 and Pre-procedural cardiovascular examination V72.[address] Jun, [facility] [address] Jun, Pre-procedural [facility] cardiovascular examination V72.81 and Pre-procedural laboratory examination V72.[address] Mar, [facility] [address] [place] [address] Mar, Abnormal mammogram 793.80 [facility] [address] [place] [address] Mar, Abnormal mammogram 793.80 [facility] [address] [place] [address] Mar, Abnormal mammogram 793.80 [facility] [address] [place] [address] Mar, Well Woman Exam V72.31 and [facility]212 Mammogram Screening V76.[address] Mar, Well Woman Exam V72.31 ; [facility]212 Hyperlipidemia 272.4 ; Anxiety 300.00 ; Pre-diabetes 790.29 and Need for prophylactic vaccination against other specified vaccination V03.[address] Mar, [facility] [address] Mar, Anxiety 300.00 [facility]212 [address] Mar, [facility] [address] [place] [address] Jan, Serum calcium elevated [facility] 275.42 and Elevated glucose 790.[address] Jan, Phys[facility] [place]212 [address] Jan, Serum calcium elevated [facility] 275.42 and Elevated glucose 790.[address] Jan, [facility] [place]212 [address] Jan, [facility] [address] Jan, Anxiety 300.00 and [facility] [address] Depression [address] Jan, [facility] [address] Jan, [facility] [address] Sep, [facility] [address] Sep, Hyperlipidemia 272.4 [facility] [address] Sep, HTN (hypertension) 401.9 [facility] and Hyperlipidemia 272.[address] Mar, Screening breast [facility] [address] examination V76.10 ; Surgical menopause 627.4 ; Hyperlipidemia 272.4 ; Chest pain 786.50 ; Elevated BP 796.2 ; Family history of diabetes mellitus V18.0 and Mammogram Screening V76.[address] Mar, [facility] [address] Mar, Hyperlipidemia 272.4 [facility] [address] Mar, Screening breast [facility] [place] [address] examination V76.10 ; Hyperlipidemia 272.4 ; Chest pain 786.50 ; Elevated BP 796.2 ; Surgical menopause 627.4 ; Family history of diabetes mellitus V18.0 and Mammogram Screening V76.[address] Mar, Screening breast [facility] [address] examination V76.10 ; Hyperlipidemia 272.4 ; Chest pain 786.50 ; Elevated BP 796.2 ; Surgical menopause 627.4 and Family history of diabetes mellitus V18.[address] Mar, Medicare annual wellness [facility] [address] visit, initial V70.[address] Mar, Abnormal mammogram; [place] [address] unspecified 793.80 [facility] [address] Mar, Phys[facility] [address] [place] [address] Family [address] Mar, [facility] [address] [place] [address] Family [address] Mar, [facility] [id number] [place] [address] Family [address] Mar, Well Woman Exam V72.31 ; [facility]212 Hyperlipidemia 272.4 ; Family history of diabetes mellitus V18.0 ; Colon polyps 211.3 and Mammogram Screening V76.12 [place] [facility] [address] Mar, Well Woman Exam V72.31 ; Phys[facility]212 Hyperlipidemia 272.4 ; Family history of diabetes mellitus V18.0 and Colon polyps 211.3 [place] [facility] [address] Mar, [facility] [id number] [place] [address] Family [address] Jan, [facility] [id number] [place] [address] Surgery [address] Nov, [place] [id number] [facility] [address] Oct, [facility] [id number] [place] [address] Family [address] Oct, [facility] [id number] [place] [address] Family [address] Oct, [facility] [address] [place] [address] Family [address] Oct, [facility] [id number] [place] [address] Family [address] Jun, [facility] [address] [place] [address] Family [address] May, [facility] [address] [facility] [address] Mar, Phys[facility] [address] IMMUNIZATIONS No Known Immunizations SOCIAL HISTORY Never Assessed REASON FOR VISIT 1 MONTH F/U DEPRESSION/ANXIETY PLAN OF CARE Activity Details Follow Up prn Reason: VITAL SIGNS Weight 136.6 lbs 2017-06-02 Height 65.2 in 2017-06-02 Heart Rate 79 /min 2017-06-02 Oximetry 96 % 2017-06-02 BMI 22.59 kg/m2 2017-06-02 Blood pressure systolic 160 mm Hg 2017-06-02 Blood pressure diastolic 90 mm Hg 2017-06-02 MEDICATIONS Medication Instructions Dosage Frequency Start End Duration Status Date Date Temazepam 15 MG Orally QHS 1-2 May, as Active capsules 2017 needed at bedtime as needed Pristiq 50 MG Orally Once a 1 tablet 24h Active day Hydrochlorothiazide TAKE ONE 90 Active 25MG TABLET BY MOUTH ONCE DAILY Aspirin 81 MG Orally Once a 1 tablet 24h 30 day(s) Active day Simvastatin 10MG take one 24h Active tablet by mouth once daily in the evening Xanax 0.25 MG Orally Three 1 tablet May, as Active Times Daily 2017 needed RESULTS No Results PROCEDURES No Known [...]
--- OUTSIDE RECORDS SUMMARY | 2017-07-05 20:33 | External Medical Summary ---
:1945 Author Organization [employer] Care Team Providers Name Role Phone Ha Jimenez Provider Role Unavailable Allergies No Known Allergies Problems Problem Type Condition ICD-9 Code Onset Dates Condition Status Problem Family history of diabetes V18.0 Active mellitus Problem Colon polyps 211.3 Active Problem Hyperlipidemia 272.4 Active Assessment Well Woman Exam V72.31 Active Assessment Mammogram Screening V76.12 Active Medications No Known Medications Procedures Procedure Coding System Code Date COMPUTER AIDED SCR CPT-4 12044 Mar 25, 2014 BILATERAL SCR MAMMO CPT-4 91389 Mar 25, 2014 Results No Known Results Summary Purpose [employer] Submission
--- OUTSIDE RECORDS SUMMARY | 2017-07-05 20:33 | External Medical Summary ---
:1945 Author Organization [facility] [place] Address [address] [place] [address] Care Team Providers Name Role Phone Ha Jimenez Unavailable Unavailable PROBLEMS Type Condition ICD9-CM Code [id number] Onset Condition SNOMED Code Code Dates Status Problem Colon polyps 211.3 Active 83205053 Problem Hyperlipidemia 272.4 Active 05227148 Problem Family history of V18.0 Active 971843567 diabetes mellitus Problem Anxiety and F41.8 Active 263077558 depression Problem Depression, F32.9 Active 18521379 unspecified depression type Problem Hyperlipidemia E78.5 Active 56073685 Problem Breast cancer C50.919 Active 001887033 Problem Anxiety F41.9 Active 48509153 Problem Essential I10 Active 45303210 hypertension ALLERGIES No Information ENCOUNTERS Encounter Location Date Diagnosis [address] Nov, Physicians [place], [address] Jun, Physicians [place], [address] Jun, Physicians [place], [address] Jun, Anxiety [place] [address] [address] May, Physicians [place], [address] May, Depression, unspecified Physicians [place], [facility]212 depression type F32.9 and Anxiety F41.[address] Nov, Physicians [place] [address] Nov, Well woman exam Z01.419 ; [place] [address] Osteopenia, unspecified location M85.80 ; Essential hypertension I10 ; Hyperlipidemia E78.5 ; Breast cancer C50.919 and Pre-diabetes R73.03 [facility] [address] Nov, Well woman exam Z01.419 ; Physicians [place]212 Essential hypertension I10 ; Hyperlipidemia E78.5 ; Breast cancer C50.919 ; Pre-diabetes R73.03 and Osteopenia, unspecified location M85.80 [facility] [address] Oct, Physicians [place] PATRICIO212 [facility] [address] [facility] Mar, Physicians [place] PATRICIO212 [facility] [address] [facility] Jan, Physicians [place] PATRICIO212 [facility] [address] [facility] Sep, Chest pain R07.9 Physicians [place] PAT[place]ICIO212 [facility] [address] [place] [address] Sep, Chest pain R07.9 ; Well Physicians YE[place] PATRICIO212 woman exam Z01.419 ; Essential hypertension I10 ; Hyperlipidemia E78.5 ; Menopause Z78.0 ; Immunization due Z23 and Breast cancer C50.919 [facility] [address] Jul, Physicians [place] PATRICIO212 [facility] [address] [facility] Jul, Physicians YE[place] PATRICIO212 [facility] [address] Jul, Physicians YE[place] PATRICIO212 [facility] [address] Jul, Well woman exam Z01.419 ; Physicians [place]212 Essential hypertension I10 ; Hyperlipidemia E78.5 ; Menopause Z78.0 ; Immunization due Z23 ; Breast cancer C50.919 and Chest pain R07.9 [facility] [address] 13 Jul, 2015 Encounter for general adult Physicians YE[place] PATRICIO212 medical examination without abnormal findings Z00.00 [facility] [address] [place] [address] Jul, Physicians [place] PATRICIO [facility] [address] May, Physicians [place] PATRICIO [facility] [address] [facility] Mar, Physicians YEYO PATRICIO212 [facility] [address] [place] [address] Jan, Physicians [place], [place] [address] [place] [address] [place] [address] Jan, Physicians [place] PATRIC[place] [address] [place] [address] [place] [address] Jun, Pre-procedural laboratory Physicians YEYO PATRICIO examination V72.63 and Pre-procedural cardiovascular examination V72.81 [facility] [address] [place] [address] Jun, Physicians YEY[place] PATRICIO212 [facility] [address] [place] [address] Jun, Pre-procedural Physicians YEY[place] PATRICIO cardiovascular examination V72.81 and Pre-procedural laboratory examination V72.63 [facility] [address] [place] [address] Mar, Physicians [place] PATRICIO212 [address] Mar, Abnormal mammogram 793.80 Physicians YE[place] PATRICIO212 [facility] [address] [place] [address] Mar, Abnormal mammogram 793.[address] [facility]icians [place] [place] [address] Mar, Abnormal mammogram 793.80 Physicians [place] PATRICIO[address] Mar, Well Woman Exam V72.31 and Physicians [place] PATRICIO Mammogram Screening V76.[address] Mar, Well Woman Exam V72.31 ; Physicians [place] PATRICIO Hyperlipidemia 272.4 ; Anxiety 300.00 ; Pre-diabetes 790.29 and Need for prophylactic vaccination against other specified vaccination V03.[address] Mar, Physicians [place] PATRICIO212 [address] Mar, Anxiety 300.00 Physicians [place] PATRICIO212 [address] Mar, Physicians YE[place] PATRICIO212 [address] Jan, Serum calcium elevated Physicians YEYO PATRICIO 275.42 and Elevated glucose 790.29 [facility] [address] [place] [address] Jan, Physicians YE[place] PATRICIO212 [address] Jan, Serum calcium elevated Physicians YYEO PATRICIO 275.42 and Elevated glucose 790.[address] Jan, Physicians [place] [place] [address] Jan, Physicians [place] PATRIC[place] [address] [place] [address] Jan, Anxiety 300.00 and Physicians YEY[place] PATRICIO Depression [address] Jan, Physicians [place] [place] [address] Jan, Physicians [place] [place] [address] Sep, Physicians YE[place] PATRICIO[address] Sep, Hyperlipidemia 272.4 Physicians [place] [place] [address] Sep, HTN (hypertension) 401.9 Physicians YE[place] PATRICIO212 and Hyperlipidemia 272.[address] Mar, Screening breast Physicians YEYO PATRICIO212 examination V76.10 ; Surgical menopause 627.4 ; Hyperlipidemia 272.4 ; Chest pain 786.50 ; Elevated BP 796.2 ; Family history of diabetes mellitus V18.0 and Mammogram Screening V76.[address] Mar, Physicians YEY[place] PATRICIO212 [address] Mar, Hyperlipidemia 272.4 Physicians YE[place] PATRICIO[address] Mar, Screening breast Physicians YEYO PATRICIO212 examination V76.10 ; Hyperlipidemia 272.4 ; Chest pain 786.50 ; Elevated BP 796.2 ; Surgical menopause 627.4 ; Family history of diabetes mellitus V18.0 and Mammogram Screening V76.[address] Mar, Screening breast Physicians YEYO PATRICIO212 examination V76.10 ; Hyperlipidemia 272.4 ; Chest pain 786.50 ; Elevated BP 796.2 ; Surgical menopause 627.4 and Family history of diabetes mellitus V18.[address] Mar, Medicare annual wellness Physicians [place] [address] visit, initial V70.0 [facility] [address] 16 Mar, 2012 Abnormal mammogram; Physicians [place] PATRICIO212 unspecified 793.80 [facility] [address] Mar, Physicians [place] [address] [facility] [address] Mar, Physicians [place] [address] [facility] [address] Mar, Physicians [place] [address] [facility] [address] Mar, Well Woman Exam V72.31 ; Physicians [place] [address] Hyperlipidemia 272.4 ; Family history of diabetes mellitus V18.0 ; Colon polyps 211.3 and Mammogram Screening V76.12 [facility] [address] Mar, Well Woman Exam V72.31 ; Physicians [place] [address] Hyperlipidemia 272.4 ; Family history of diabetes mellitus V18.0 and Colon polyps 211.3 [facility] [address] Mar, Physicians [place] [address] [facility] [address] Jan, Physicians [place] [address] [facility] [address] Nov, [place] [phone] [facility] [address] Oct, Physicians [place] [address] [facility] [address] Oct, Physicians [place] [address] [facility] [address] Oct, Physicians [place] [address] [facility] [address] Oct, Physicians [place] [address] [facility] [address] Jun, Physicians [place] [address] [facility] [address] May, Physicians [place] [address] [facility] [address] Mar, Physicians [place] [address] IMMUNIZATIONS No Known Immunizations SOCIAL HISTORY Never Assessed REASON FOR VISIT Temazepam PLAN OF CARE VITAL SIGNS MEDICATIONS Medication Instructions Dosage Frequency Start End Date Duration Status Date Temazepam 30 MG Orally QHS 1 capsule May, as needed Active at bedtime 2017 as needed RESULTS No Results PROCEDURES No [...]
--- OUTSIDE RECORDS SUMMARY | 2017-07-05 20:33 | External Medical Summary ---
[...] Medications Procedures Procedure Coding System Code Date BX BREAST 1ST [facility] CPT-4 55792 Apr 15, 2014 Results No Known Results Summary Purpose [employer]ClinicalMinus Submission
--- OUTSIDE RECORDS SUMMARY | 2017-07-05 20:33 | External Medical Summary ---
:1945 Author Organization [employer] Care Team Providers Name Role Phone Ha Jimenez Provider Role Unavailable Allergies No Known Allergies Problems Problem Type Condition Code Onset Dates Condition Status Problem Family history of diabetes mellitus V18.0 Active Problem Colon polyps 211.3 Active Problem Hyperlipidemia 272.4 Active Medications Medication Code System Code Instructions Start Date End Date Status Dosage Zoloft [facility] [address] 100 MG Orally Jun 25, 1 tablet -30 Once a day 2014 Results No Known Results Summary Purpose eClinicalWorks Submission
--- OUTSIDE RECORDS SUMMARY | 2017-07-05 20:33 | External Medical Summary ---
:1945 Author Organization [facility] [place] Address [address] [place] [address] Care Team Providers Name Role Phone Ha Jimenez Unavailable Unavailable PROBLEMS Type Condition ICD9-CM Code [id number] Onset Condition SNOMED Code Code Dates Status Problem Colon polyps 211.3 Active 31146969 Problem Hyperlipidemia 272.4 Active 56000699 Problem Family history of V18.0 Active 131467847 diabetes mellitus Problem Anxiety and F41.8 Active 992503936 depression Problem Depression, F32.9 Active 70697741 unspecified depression type Problem Hyperlipidemia E78.5 Active 94096386 Problem Breast cancer C50.919 Active 550412585 Problem Anxiety F41.9 Active 19999361 Problem Essential I10 Active 27122122 hypertension ALLERGIES No Information ENCOUNTERS Encounter Location Date Diagnosis [facility] [address] [place] [address] Nov, Physicians [place]IC[place] [address] [place] [address] [place] [address] Jun, Physicians [place]IC[place] [address] [place] [address] [place] [address] Jun, Physicians YE[place] PATRICIO [address] [place] [address] [address] [facility] Jun, Physicians YEY[place] PATRIC[place] [id number] [place] [address] [address] [facility] Jun, Physicians YEY[place] PATRICIO [address] [place] [address] [address] Jun, Physicians [place] PAT[place]IC[place] [id number] [place] [address] [address] Jun, Physicians [place] PATRICIO [address] [place] [address] [address] Jun, Anxiety and depression Physicians [place] PATRICIO [address] F41.8 [facility] [address] May, Physicians [place] PAT[place]IC[place] [id number] [place] [address] [address] May, Depression, unspecified Physicians [place] [address] depression type F32.9 and Anxiety F41.9 [facility] [address] [place] [address] Nov, Physicians [place] [address] [facility] [address] [place] [address] Nov, Well woman exam Z01.419 ; Physicians YEYO PATRICIO212 Osteopenia, unspecified location M85.80 ; Essential hypertension I10 ; Hyperlipidemia E78.5 ; Breast cancer C50.919 and Pre-diabetes R73.03 [facility] [address] [place] [address] Nov, Well woman exam Z01.419 ; Physicians YEYO PATRICIO212 Essential hypertension I10 ; Hyperlipidemia E78.5 ; Breast cancer C50.919 ; Pre-diabetes R73.03 and Osteopenia, unspecified location M85.[address] Oct, Physicians YEYO PATRICIO212 [facility] [address] [place] [address] Mar, Physicians YEYO PATRICIO212 [facility] [address] [place] [address] Jan, Physicians YEYO PATRICIO212 [address] Sep, Chest pain R07.9 Physicians [place] [address] [facility] [address] [place] [address] Sep, Chest pain R07.9 ; Well Physicians [place] [address] woman exam Z01.419 ; Essential hypertension I10 ; Hyperlipidemia E78.5 ; Menopause Z78.0 ; Immunization due Z23 and Breast cancer C50.919 [facility] [address] [place] [address] Jul, Physicians [place] [address] Jul, Physicians YEYO PATRICIO212 [facility] [address] [place] [address] Jul, Physicians YEYO PATRICIO212 [facility] [address] [place] [address] Jul, Well woman exam Z01.419 ; Physicians YEYO PATRICIO212 Essential hypertension I10 ; Hyperlipidemia E78.5 ; Menopause Z78.0 ; Immunization due Z23 ; Breast cancer C50.919 and Chest pain R07.9 [facility] [address] [place] [address] Jul, Encounter for general adult Physicians YEYO PATRICIO212 medical examination without abnormal findings Z00.00 [facility] [address] [place] [address] Jul, Physicians [place] PATRIC[place] [id number] [place] [address] [place] [address] May, Physicians YEYO PATRICIO [address] [place] [address] Mar, Physicians YEYO PATRICIO212 [address] Jan, Physicians YEY[place] PATRICIO212 [address] Jan, Physicians YEYO PATRICIO212 [address] Jun, Pre-procedural laboratory Physicians YEYO PATRICIO212 examination V72.63 and Pre-procedural cardiovascular examination V72.[address] Jun, Physicians [place] [address] Jun, Pre-procedural Physicians YEYO PATRICIO cardiovascular examination V72.81 and Pre-procedural laboratory examination V72.[address] Mar, Physicians [place] [address] [facility] [address] [place] [address] Mar, Abnormal mammogram 793.80 Physicians [place] PATRICIO [id number] [place] [address] Mar, Abnormal mammogram 793.80 Physicians [place] [address] Mar, Abnormal mammogram 793.80 Physicians YEY[place] PATRICIO212 [address] Mar, Well Woman Exam V72.31 and Physicians YEY[place] PATRICIO Mammogram Screening V76.[address] Mar, Well Woman Exam V72.31 ; Physicians YEOY PATRICIO Hyperlipidemia 272.4 ; Anxiety 300.00 ; Pre-diabetes 790.29 and Need for prophylactic vaccination against other specified vaccination V03.[address] Mar, Physicians [place] PATRIC[place] [address] Mar, Anxiety 300.00 Physicians YE[place] PATRICIO [address] Mar, Physicians YE[place] [address] [place] [address] [address] [facility] Jan, Serum calcium elevated Physicians YEYO PATRICIO212 275.42 and Elevated glucose 790.29 [facility] [address] [facility] Jan, Physicians YEYO PATRICIO212 [facility] [address] [place] [address] Jan, Serum calcium elevated Physicians YEYO PATRICIO 275.42 and Elevated glucose 790.29 [facility] [address] [facility] Jan, Physicians YE[place] [address] [place] [address] [place] [address] Jan, Physicians YE[place] [address] [place] [address] Jan, Anxiety 300.00 and Physicians YEYO PATRICIO Depression [address] Jan, Physicians [place]IC[place] [address] [place] [address] [place] [address] Jan, Physicians YEYO PATRICIO [address] [place] [address] [place] [address] Sep, Physicians YEYO PATRICIO [address] [place] [address] [place] [address] Sep, Hyperlipidemia 272.4 Physicians YE[place] PATRICIO [address] [place] [address] [place] [address] Sep, HTN (hypertension) 401.9 Physicians YEYO PATRICIO212 and Hyperlipidemia 272.4 [facility] [address] [place] [address] Mar, Screening breast Physicians YEYO PATRICIO212 examination V76.10 ; Surgical menopause 627.4 ; Hyperlipidemia 272.4 ; Chest pain 786.50 ; Elevated BP 796.2 ; Family history of diabetes mellitus V18.0 and Mammogram Screening V76.12 [facility] [address] [place] [address] Mar, Physicians YEYO PATRICIO212 [address] Mar, Hyperlipidemia 272.4 Physicians YEYO PATRICIO212 [facility] [address] [place] [address] Mar, Screening breast Physicians YEYO PATRICIO212 examination V76.10 ; Hyperlipidemia 272.4 ; Chest pain 786.50 ; Elevated BP 796.2 ; Surgical menopause 627.4 ; Family history of diabetes mellitus V18.0 and Mammogram Screening V76.12 [facility] [address] Mar, Screening breast Physicians [place] [address] examination V76.10 ; Hyperlipidemia 272.4 ; Chest pain 786.50 ; Elevated BP 796.2 ; Surgical menopause 627.4 and Family history of diabetes mellitus V18.0 [facility] [address] Mar, Medicare annual wellness Physicians [place] [address] visit, initial V70.0 [facility] [address] 16 Mar, 2012 Abnormal mammogram; Physicians YEYO PATRICIO212 unspecified 793.80 [facility] [address] 13 Mar, 2012 Physicians [place] [address] [facility] [address] Mar, Physicians [place] [address] [facility] [address] Mar, Physicians [place] [address] [facility] [address] [place] [address] Mar, Well Woman Exam V72.31 ; Physicians [place] [address] Hyperlipidemia 272.4 ; Family history of diabetes mellitus V18.0 ; Colon polyps 211.3 and Mammogram Screening V76.12 [facility] [address] Mar, Well Woman Exam V72.31 ; Physicians [place] [address] Hyperlipidemia 272.4 ; Family history of diabetes mellitus V18.0 and Colon polyps 211.3 [facility] [address] Mar, Physicians [place] [address] [facility] [address] Jan, Physicians [place] [address] [facility] [address] Nov, [place] [address] [facility] [address] Oct, Physicians [place] [address] [facility] [address] Oct, Physicians [place] [address] [facility] [address] Oct, Physicians [place] [address] [facility] [address] Oct, Physicians [place] [address] [facility] [address] Jun, Physicians [place] [address] [facility] [address] 13 May, 2009 Physicians [place] [address] [facility] [address] Mar, Physicians [place] [address] IMMUNIZATIONS No Known Immunizations SOCIAL HISTORY Never Assessed REASON FOR VISIT UTI testing PLAN OF CARE VITAL SIGNS MEDICATIONS Unknown [...]
--- OUTSIDE RECORDS SUMMARY | 2017-07-05 20:33 | External Medical Summary ---
:1945 Author Organization eClinicalWorks Care Team Providers Name Role Phone Ha Jimenez Provider Role Unavailable Allergies No Known Allergies Problems Problem Type Condition Code Onset Dates Condition Status Problem Family history of diabetes mellitus V18.0 Active Problem Colon polyps 211.3 Active Problem Hyperlipidemia 272.4 Active Medications No Known Medications Results No Known Results Summary Purpose Diwane[employer]System Submission
--- OUTSIDE RECORDS SUMMARY | 2017-07-05 20:33 | External Medical Summary ---
:1945 Author Organization [facility] Address [address] [place] [address] Care Team Providers Name Role Phone Ha Jimenez Unavailable Unavailable PROBLEMS Type Condition ICD9-CM Code [id number] Onset Condition SNOMED Code Code Dates Status Problem Essential I10 Active 67908929 hypertension Problem Hyperlipidemia E78.5 Active 91954598 Problem Family history of V18.0 Active 891347023 diabetes mellitus Problem Colon polyps 211.3 Active 53359804 Problem Breast cancer C50.919 Active 415923000 Problem Hyperlipidemia 272.4 Active 03636030 ALLERGIES Substance Reaction Event Type Date Status N.K.D.A. Unknown Non Drug Allergy Nov, Unknown SOCIAL HISTORY No smoking Hx information available PLAN OF CARE Activity Details Follow Up 1 Year Reason: VITAL SIGNS Weight 148.4 lbs 2016-11-30 Height 65.2 in 2016-11-30 Temperature 97.8 degrees Fahrenheit 2016-11-30 Heart Rate 79 /min 2016-11-30 Oximetry 98 % 2016-11-30 BMI 24.54 kg/m2 2016-11-30 Blood pressure systolic 148 mm Hg 2016-11-30 Blood pressure diastolic 85 mm Hg 2016-11-30 MEDICATIONS Medication Instructions Dosage Frequency Start End Duration Status Date Date Simvastatin 10MG take one 24h 90 Active tablet by mouth once daily in the evening Aspirin 81 MG Orally Once a 1 tablet 24h 30 day(s) Active day Hydrochlorothiazide TAKE ONE 90 Active 25MG TABLET BY MOUTH ONCE DAILY RESULTS Name Result Date Reference Range CBC 2016-11-30 WBC 4.4 4.0-10.0 NE% 59.9 42.2-75.2 NE# 2.6 1.4-6.5 LY% 28.5 20.5-51.1 LY# 1.3 1.2-3.4 MO% 7.3 1.7-9.3 MO# 0.3 0.1-0.6 EO% 3.4 0.0-3.0 EO# 0.2 0.0-0.2 BA% 0.9 0.0-1.0 BA# 0.0 0.0-0.1 RBC 3.96 3.90-5.20 HGB 13.0 11.6-16.0 HCT 38.8 36.0-46.0 MCV 98.0 81.0-96.0 MCH 32.8 27.0-33.0 MCHC 33.5 32.0-35.0 RDW 11.6 11.5-15.5 PLT 197 130-400 MPV 11.3 8.9-12.7 COMPREHENSIVE CHEM PROFILE 2016-11-30 GLUCOSE 88 60-99 BUN 12 8-23 CREATININE 0.6 0.4-1.1 eGFR If Am 119 >60 eGFR If Non Am 98 >60 TOTAL BILI 0.82 0.00-1.00 SODIUM 140 133-145 POTASSIUM 3.6 3.3-5.1 CHLORIDE 98 96-108 CO2 30 23-31 CALCIUM 10.1 8.7-10.3 AST/SGOT 37 5-40 ALT/SGPT 18 5-40 ALK PHOS 80 34-114 TOTAL PROTEIN 7.2 5.9-8.4 ALBUMIN 4.4 3.2-5.2 GLOBULIN 2.8 2.0-4.4 LIPID PROFILE 2016-11-30 CHOLESTEROL 179 50-200 TRIGLYCERIDE 66 30-150 HDL-DIRECT 66 45-65 LDL-DIRECT 111 0-99 CHOL/HDL 2.7 4.0-6.7 HbA1C 2016-11-30 %A1C 5.4 4.0-6.0 PROCEDURES Procedure Date Ordered Related Diagnosis Body Site CBC Nov 30, 2016 COMP PROFILE Nov 30, 2016 HgB A1C Nov 30, 2016 LIPID PROFILE Nov 30, 2016 OFFICE VISITEST PT Nov 30, 2016 IMMUNIZATIONS No Known Immunizations
[2017-07-05] MEDS ORDERED: HALOPERIDOL 0.5 MG TABLET PO PRN (20:53)
[2017-07-05] MEDS ORDERED: LORazepam 0.5 MG TABLET PO PRN (20:53)
[2017-07-05] MEDS ORDERED: HALOPERIDOL 5 MG/ML INJECTION IM PRN (20:53)
[2017-07-05] MEDS: MIRTAZAPINE 15 MG TABLET PO SCH (22:46)
[2017-07-06 02:13] VITALS: BMI 23.1
--- NOTE | 2017-07-06 09:26 | History & Physical Report ---
History of Present Illness Date: 07/08/17 Chief complaint: depression HPI: Marialuisa Parrish is a 72 y/o woman seen in consultation from Dr. Richey for medical management. She was admitted to [facility] for further evaluation of depression, paranoid behaviors, confusion, and self-care failure. Of note, she has also been under a lot of stress d/t her 's decline - he is on hospice for ICH and resides at [facility]. She was admitted to [facility] on 06/30/17 for altered mental status and was placed in suicide precautions. Her sodium level was low at 125; improved to 129 on 07/03/17 and was 138 on 07/04/17. BUN = 3, cr 0.43. She also required IV K replacement d/t K of 3.0 and poor oral intake. Phos was low at 2.8. Vit B12 was 344; folate 13.6. TSH was 2.13. Hgb 11. CT of her head on 07/02/17 was negative for acute intracranial abnormalities. She had an MRI at [facility] which revealed chronic small vessel ischemic disease and leukoaraiosis, but no acute findings. Carotid sono showed [id number] atherosclerosis in cervical carotid bifurcations, R>L; no significant stenosis. A renal sono was obtained d/t elevated BP -- this showed mild prominence of right renal collecting sstem but was otherwise unremarkable. EKG there showed SR , rate 87, QTc 438. Reportedly had a sz on 07/02/17 but EEG was normal and Dr. Tobias did not see definite need for AED and felt that sz was likely provoked ( poss Xanax w/drawal). She was medically stable by 07/05/17 [address] discharged to [facility]. Marialuisa was seen in the morning of 07/06/17. 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 She became tearful, stating that her used to care for all the outdoor upkeep and she was in charge of the indoors. She recounted when she found her lying in the yard last June, which is when he had his stroke. He hasn't been able to move the left side of his body since then, and currently is on hospice. She reports that her kids want her here because of her depression and anxiety. She doesn't recall every event from her recent hospitalization, particularly her fall and seizure, which was unwitnessed but left her with bruising to her chin. She states that she used to take a diuretic but believes this was discontinued because of low sodium and potassium levels. She denies fever/chills or recent illnesses. She hasn't been eating as well and states that she's lost weight. She used to weigh close to 150 lbs, currently is 135. She's not sure of when it was she used to weigh 150. She denies n/v/d but has occasional constipation. She denies chest pain or palpitations, but states that she has a hx of mitral valve prolapse from rheumatic fever but states that it never causes her any problems. She used to have problems with leg swelling but that improved after her varicose veins were stripped. She has chronic insomnia and needs to take her sleeping pill each night. She denies urinary problems. No dizziness/lightheadedness or falls other than the one mentioned before. Review of Systems All systems PM: 10-point ROS was reviewed, no additional remarkable complaints except - Constitutional Constitutional: Present: weight loss (used to weigh 150 lbs.). Absent: chills, fever(s), headache(s) - EENMT Eyes: Present: requires corrective lenses. Absent: blurry vision Balance: Absent: vertigo Nose: Absent: obstruction, allergies Mouth/Throat: Absent: sore throat - Cardiovascular Cardiovascular: Present: hx of rheumatic fever. Absent: chest pain, palpitations (has MV problems but it never bothers her) Vascular: Present: varicosities (hx - had varicose veins removed). Absent: pedal edema - Respiratory Respiratory: Absent: cough, dyspnea - Gastrointestinal Gastrointestinal: Present: constipation (occ.). Absent: abdominal pain, diarrhea, nausea, vomiting - Genitourinary Genitourinary: Absent: dysuria - Musculoskeletal Musculoskeletal: Absent: muscle weakness - Integumentary/Breasts Integumentary: Present: other (bruise to left side of chin). Absent: rash - Neurological Neurological: Present: tremor(s) - Psychiatric Psychiatric: Present: as per HPI, behavioral changes, hallucinations (per [facility] - auditory) - Endocrine Endocrine: Absent: excessive sweating, palpitations - Hematologic/Lymphatic Hematologic/Lymphatic: Present: easy bruising - Allergic/Immunologic Allergic/Immunologic: Absent: seasonal rhinorrhea Past Medical History Rheumatic fever MVP HTN Dyslipidemia MDD Seizure on 07/02/17 B12 deficiency Insomnia Breast cancer, s/p removal Surgical History: Lymph node biopsy; Radical mastectomy in 2014; colonoscopy ( 2008); sclerotherapy of varicose vein (1999); abdominal hysterectomy (1998) Family History Updates: Positive for dementia, HTN, cirrhosis. Mother had CHF and dementia. Father had CHF and HTN. Brother and sister both living iwth HTN and DM. No family history of depression or cancer. - Social History Smoking status: Never smoker Medications Home Medications Medication Instructions Recorded Confirmed Type Aspirin 1 tab PO DAILY 07/06/17 07/06/17 History CloNIDine [Catapres] 1 tab PO BID PRN 07/06/17 07/06/17 History Cyanocobalamin (Vitamin B-12) 1 tab PO DAILY 07/06/17 07/06/17 History [Vitamin B-12] Desvenlafaxine Succinate [Pristiq 50 mg PO DAILY 07/06/17 07/06/17 History ER] LORazepam [Ativan] 0.5 mg PO BID 07/06/17 07/06/17 History Losartan [Cozaar] 50 mg PO BID 07/06/17 07/06/17 History Polyethylene Glycol 3350 17 gm PO DAILY 07/06/17 07/06/17 History Potassium Chloride 20 meq PO BID 07/06/17 07/06/17 History Sertraline HCl [Zoloft] 50 mg PO DAILY 07/06/17 07/06/17 History Simvastatin [Zocor] 10 mg PO DAILY 07/06/17 07/06/17 History Temazepam [Restoril] 15 mg PO HS PRN 07/06/17 07/06/17 History Thiamine [Vitamin B-1] 100 mg PO DAILY 07/06/17 07/06/17 History Allergies Allergy/AdvReac Type Severity Reaction Status Date / Time No Known Allergies Allergy Verified 07/06/17 00:42 Exam Vital Signs: Temperature 97.0 F 07/05/17 21:20 Pulse Rate 86 07/05/17 22:22 Respiratory Rate 18 07/05/17 22:22 Blood Pressure 164/85 H 07/05/17 21:20 Pulse Oximetry 96 07/05/17 22:22 Height/Weight/BMI: Height 1.63 m Weight 61.3 kg Body Mass Index 23.1 - Constitutional Present: no acute distress, well nourished, well developed, thin - Routine HEENT Exam Head: Absent: normocephalic (ecchymosis to left side of chin/mandible) Eye: Present: PERRL. Absent: scleral injection ENT: Present: mucous membranes moist, oropharynx clear - Routine Neck Exam Present: supple - Routine Respiratory Exam Present: CTA bilaterally - Routine Cardiovascular Exam Present: RRR, S1, S2 - Routine Abdominal Exam Present: soft, normoactive bowel sounds, non distended, non tender - Routine Extremities Exam Present: edema (trace BLE), pulses intact, normal capillary refill - Routine Back/Spine/Pelvis Exam Back/Spine: Present: full ROM - Routine Skin Exam Present: intact, dry, warm, ecchymosis (left mandible; yellow discoloration extends down neck) - Routine Neurological Exam Present: alert, oriented X3, CN II-XII intact, moving all extremities, vision grossly intact, hearing grossly intact, normal speech. Absent: motor deficit, facial asymmetry - Routine Psychiatric Exam Present: normal thought process, cooperative. Absent: normal affect (anxious; depressed) Results - Labs CBC & Chem 7: 07/07/17 07:08 07/07/17 07:08 Assessment and Plan Assessment and Plan: IMPRESSION Depression, anxiety Recent hyponatremia, hypokalemia - diuretic dc'd Ecchymosis to left mandible, POA Seizure on 07/02/17 - EEG negative B12 deficiency (B12 344 at [facility]) History of rheumatic fever MVP HTN Dyslipidemia Insomnia Breast cancer PLAN External records reviewed. Monitor BMP; if she develops HTN and/or leg swelling and is drinking fluids well we may consider re-introducing a loop diuretic but will have to monitor Na and K levels. Renal function stable. Her BP was elevated at 164/85 on admission (no other VS yet documented) - monitor trends and consider adding an antihypertensive agent or diuretic. She had B12, folate, and TSH levels checked at [facility] (folate & TSH were normal). Lipid panel was reviewed, normal. Hgb A1c was 5.5%. Medically stable. Depression/anxiety treatment per Attending. Hospitalist addendum: Seen and examined patient on same day as the above note. Agree with history, physical, assessment and plan. Comprehensive physical findings correlate to the above note. Subjective: patient complains of multiple issues including fall and overall not doing well with eating and losing weight Objective: anxious but no medical distress, just clear to auscultation cardiovascular S1 S2 with occasional ectopic neurologically intact Assessment and plan: history of her multiple medical issues. Be stable at this time and psychiatric care appears to be predominant to her needs today Documented on Dragon speech to text. Efforts to crack speech recognition errors performed, but variation may exist Resuscitation Status: Full Code - Physician Narrative Narrative: Date: 07/06/17 Time: 921 Hospital Course Summary Disclaimer: The visit summary below is not to be considered part of the above Progress Note. Hospital Course: 07/06/17 External records reviewed. Monitor BMP; if she develops HTN and/or leg swelling and is drinking fluids well we may consider re-introducing a loop diuretic but will have to monitor Na and K levels. Renal function stable. Her BP was elevated at 164/85 on admission (no other VS yet documented) - monitor trends and consider adding an antihypertensive agent or diuretic. She had B12, folate, and TSH levels checked at [facility] (folate & TSH were normal). Lipid panel was reviewed, normal. Hgb A1c was 5.5%. Medically stable. Depression/anxiety treatment per Attending.
[2017-07-06] MEDS: ARIPiprazole 2 MG TABLET PO SCH (11:18)
[2017-07-06] MEDS: LOSARTAN 50 MG TABLET PO SCH ×2 (11:20→19:38)
[2017-07-06] MEDS: CYANOCOBALAMIN (B-12) 500mcg TABLET PO SCH (11:20)
[2017-07-06] MEDS: POLYETHYL GLYCOL 3350 17gm PACKET PO SCH (11:21)
[2017-07-06] MEDS: ASPIRIN 81 MG CHEWABLE TABLET PO SCH (11:32)
--- NOTE | 2017-07-06 15:18 | 24 Hour Neuropsychiatic Eval ---
Date of Admission: 07/05/17 20:21 Chief complaint: "I'm trying to get rid of depression and anxiety" History of Present Illness: Patient is a 72-year-old , female who was transferred from [facility] to [facility] on 07/05/17 due to concerns with depression, anxiety leading to self-care failure. On interview, patient is anxious, ruminative and circumstantial. She says she feels she in a hole and she can't get out. She doesn't feel that it is safe for her to return home in this state and she is open to additional options, such as [place]. 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 She has asked neighbors to do her shopping. When she has gone out with friends, she cannot even make a decision about what to eat off the menu. She is scared to drive because of her medications and thus rarely leaves the house. Patient was seen by Dr. Foster (C/L psychiatrist) while at [facility] and reported the following: "Patient is a 72 years old female brought to the hospital due to altered mental status. She came in Monday after her doctor saw her BP was 200/100 and she was confused. He thought there was a risk of stroke. She was seeing her pain doctor and needed to pee in a cup and was nervous about it. She was shaking very bad. She states her anxiety and depression has been very severe lately in the past couple of months. Yesterday, she fell out of bed at noon and had a seizure. She hit her chin and bit her tongue. Nobody witnessed it and the nurse found her face down, blue, and foaming at mouth. The code team was called and gave her O2 and she was fine. She denies having a seizure before and doesn't remember anything afterwards. STRESSORS: Her main stressor has been dealing with her having a stroke a year ago and being in rehab and now a skilled nursing facility. He also has left sided deficits and memory problems. He usually took care of her, the house, and the bills. At [place], she came to terms that he may never come back home and it depresses her to go see him. He also got worse in Jun and her anxiety has increased from that as well. She gets anxious when she has to go outside even to the mailbox because there might be bills to pay. PSYCHIATRIC HX: Does not currently have a psychiatrist. She sees a therapist at [facility] 1x/week. States she has a previous diagnosis of Depression and Anxiety. She was on Zoloft a few years ago after having an episode of depression and stopped taking it after she was discharged. She currently gets Pristiq for her Depression and Temazepam for Insomnia from her pain rn medical inpatient services. She has been on Pristiq since 2016. She gets Xanax for Anxiety from her PCP and has been taking that since May 2017. She last took her Xanax 3 days ago and her PCP stopped it because it wasn't working. She usually took 1-3x/day. She feels like the Prisitq and Xanax have been ineffective so far. She describes her Depression as a 10/10 and Anxiety 10/10 with 10 being the most severe. She doesn't want to go outside and gets panic attacks where her heart is pounding if she has to go outside. She also gets really anxious if people are at the door or if she has to go to her mailbox. She doesn't want to do anything lately and describes anhedonia where she doesn't enjoy things she used to. She states that taking the Temazepam is the best part of her day because she can just sleep. She also endorses a lack of motivation, poor concentration, low mood since Xmas, guilt, and hopelessness. She also endorses some paranoia and hears noises outside at night. She later admits that she sometimes neglects self care and doesn't eat or go outside because she worries a lot. She seems to imagine the worst possible scenario occurring. Denies AVH. Denies SI/HI. Per family: Daughter and niece state patient has not been herself for about a year and she has been getting worse. She had a drastic decline in concentration and daily functioning that has been getting worse. She is more forgetful and less active. She used to function very well in the past and went to [facility] by herself last year. They feel like her medications aren't working. They also wanted her to switch therapist to [place]. Per nurse: No problems overnight. Patient denies manic symptoms or symptoms consistent with OCD. Patient denies history of suicidal attempt or suicidal ideation. Patient denies history of self-mutilating non-suicidal behavior. Patient denies history of violence towards others. Perception: endorses auditory hallucinations of noises at night. paranoid delusions and catastrophizing. UA: unremarkable UDS: Benzo TSH: 2.13 B12: 344 Folate: 13.6" CT Head or Brain w/o Contrast 07/02/17 14:08:57 IMPRESSION: 1. Chronic microvascular changes within the white matter, as demonstrated on previous MRI. No CT evidence of an acute intracranial abnormality is demonstrated. MRI Brain w/ + w/o Contrast 06/30/17 23:14:34 IMPRESSION: 1: There is no evidence of acute cerebral infarction, intracranial hemorrhage, hydrocephalus, or enhancing mass. 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 EKG 07/02/17: SR, 87bpm, QTc 438 SLUMS 07/03/17; Patient missed two from recall and 1 from serial backwards 1. Self care failure 2. Major Depressive Disorder, recurrent, severe, with psychotic features 3. Unspecified Anxiety Disorder 4. DLDM, HTN, Recent seizure, B12 deficiency" [facility] Patient Stated Medical History Seizures Yes Hypertension Yes Depression Yes Panic Disorder No Surgical History: Lymph node biopsy; Radical mastectomy in 2014; colonoscopy ( 2008); sclerotherapy of varicose vein (1999); abdominal hysterectomy (1998) Family History Updates: Positive for dementia, HTN, cirrhosis. Mother had CHF and dementia. Father had CHF and HTN. Brother and sister both living iwth HTN and DM. No family history of depression or cancer. - Social History Smoking status: Never smoker Substance use type: does not use Alcohol intake frequency: does not drink Household members: none Current residence: Apartment/Private Home Social history: Strengths: good score on SLUMS, has supportive family Review of Systems All systems: reviewed and no additional remarkable complaints except as stated - EENMT Balance: Absent: vertigo Nose: Absent: obstruction, allergies Mouth/Throat: Absent: sore throat - Cardiovascular Vascular: Present: varicosities (hx - had varicose veins removed). Absent: pedal edema - Psychiatric Psychiatric: Present: anxiety, auditory hallucinations, behavioral changes, depression, difficulty concentrating. Absent: homicidal ideation, suicidal ideation Mental Status Exam Vitals: Last Vital Signs Temp 98.8 F 07/06/17 11:27 Pulse 81 07/06/17 11:27 Resp 18 07/06/17 11:27 BP 159/100 H 07/06/17 11:27 Pulse Ox 96 07/06/17 11:27 Height: 1.63 m Weight: 61.3 kg - Mental Status Exam Muscle Strength/Tone: Normal Dressing: Casual Grooming: Fair Attitude: Cooperative Motor Activity: Restless Eye Contact: Good Speech: Normal Volume: Normal Rhythm: Appropriate Rhythm Sensory: Alert Orientation: Oriented X4 Mood: Anxious Affect: Sad, Anxious Rate of Thoughts: Appropriate Rate Thought Organization: Circumstantial, Perseverations (on anxiety) Associations: Intact Abstract Reasoning: Poor abstract reasoning Thought Content: Ruminations, Hopelessness, Helplessness Perception/Psychotic: Psychotic Current Hallucinations: Auditory Language: Naming Intact Fund of Knowledge: [place]ira aware current events Memory: Grossly Intact Suicidal Ideation: Denies Homicidal Ideation: Denies Insight: Poor Judgement: Limited Impulse Control: Poor - Laboratory Laboratory Results - last 24 hr 07/06/17 07:11 Hemoglobin A1c 5.5 Triglycerides 57 Cholesterol 139 LDL Cholesterol, Calc 68.6 VLDL Cholesterol 11.4 HDL Cholesterol 59 Cholesterol/HDL Ratio 2.4 Assessment and Plan (1) Major depressive disorder, recurrent, severe with psychotic features Problem details: Self-care failure Current visit: Yes Status: Acute (2) Anxiety state, unspecified Problem details: Additional comorbidities: DLDM, HTN, Recent seizure, B12 deficiency Current visit: Yes Status: Acute Admit to [facility] for psychiatric evaluation and stabilization; maintain safety and elopement precautions. Obtain further collateral from family in deciding whether patient may be able to return home vs. alternate placement. Have consulted hospitalists for management of medical comorbidities. In regards to psych meds, plan to stop Pristiq and continue Zoloft, titrating as reasonable. Continue Remeron to target mood, anxiety, sleep. Started Abilify 1mg PO q AM on 07/06 to target extreme anxiety, as adjunct for antidepresant and as patient has mild accompanying psychosis. Continue clonidine 0.1mg PO BID PRN anxiety. Will continue to stress other means of coping with anxiety as well. Monitor mood, behavior and response to treatment.
[2017-07-06] MEDS: SERTRALINE 50 MG TABLET PO SCH (17:13)
[2017-07-06] MEDS: MIRTAZAPINE 15 MG TABLET PO SCH (19:39)
[2017-07-06] MEDS: SIMVASTATIN 10 MG TABLET PO SCH (19:39)
[2017-07-07] MEDS: MIRTAZAPINE 15 MG TABLET PO SCH ×2 (08:44→20:25)
[2017-07-07] MEDS: LOSARTAN 50 MG TABLET PO SCH ×3 (08:44→20:25)
[2017-07-07] MEDS: SIMVASTATIN 10 MG TABLET PO SCH ×2 (08:44→20:25)
[2017-07-07] MEDS: ARIPiprazole 2 MG TABLET PO SCH (08:47)
[2017-07-07] MEDS: CYANOCOBALAMIN (B-12) 500mcg TABLET PO SCH (08:49)
[2017-07-07] MEDS: ASPIRIN 81 MG CHEWABLE TABLET PO SCH (08:49)
[2017-07-07] MEDS: POLYETHYL GLYCOL 3350 17gm PACKET PO SCH (08:52)
[2017-07-07] MEDS: SERTRALINE 50 MG TABLET PO SCH (08:53)
--- NOTE | 2017-07-07 12:56 | Neuropsych Progress Note ---
[facility] Subjective Date: 07/07/17 - Sujective/Severity of Illness Medications: Aripiprazole (Abilify) 1 mg PO DAILY [facility] Last Admin: 07/07/17 08:47 Dose: 1 mg Aspirin (Asa) 81 mg PO DAILY [facility] Last Admin: 07/07/17 08:49 Dose: 81 mg Clonidine HCl (Catapres) 0.1 mg PO BID PRN PRN Reason: Anxiety Last Admin: 07/06/17 17:14 Dose: 0.1 mg Cyanocobalamin (Vit. B-12) 1,000 mcg PO DAILY [facility] Last Admin: 07/07/17 08:49 Dose: 1,000 mcg Haloperidol (Haldol) 0.5 mg PO Q6H PRN PRN Reason: Extreme agitation Haloperidol Lactate (Haldol) 0.5 mg IM Q6H PRN PRN Reason: Extreme agitation Losartan Potassium (Cozaar) 50 mg PO BID [facility] Last Admin: 07/07/17 08:51 Dose: 50 mg Mirtazapine (Remeron) 15 mg PO [facility] Last Admin: 07/07/17 08:44 Dose: Not Given Polyethylene Glycol (Miralax) 17 gm PO DAILY [facility] Last Admin: 07/07/17 08:52 Dose: Not Given Potassium Chloride (K-Dur 20 Meq Tablet) 20 meq PO BIDBS [facility] Last Admin: 07/07/17 08:46 Dose: 20 meq Sertraline HCl (Zoloft) 50 mg PO DAILY [facility] Last Admin: 07/07/17 08:53 Dose: 50 mg Simvastatin (Zocor) 10 mg PO HS [facility] Last Admin: 07/07/17 08:44 Dose: Not Given Thiamine HCl (Vitamin B-1) 100 mg PO DAILY [facility] Last Admin: 07/07/17 08:53 Dose: 100 mg Subjective: Patient seen and chart reviewed. Case discussed with treatment team. On interview, patient reports continued depression, anxiety, feeling that she is stuck and helpless. She reports feeling uneasy and not knowing what to do, whether she is here or at home. She reports that her was her biggest support and without his support, she doesn't feel she has other coping skills for her anxiety. She worries that she is developing dementia. Patient denies any SI or HI. She worries that she hears sounds when she is very anxious that may be AH. Patient denies any adverse side effects related to psychotropic medications. Nursing staff report patient has been anxious, pacing and very critical of herself on the unit. Patient has been adherent with medications. Patient slept 9 hours uninterrupted overnight. VSS. Patient is eating well. Psychotropic PRNs required in the past 24 hours: clonidine 0.1mg PO x1. Start Time: 11:00 Stop Time: 11:20 Mental Status Exam Vitals: Last Vital Signs Temp 97.9 F 07/07/17 08:51 Pulse 96 07/07/17 08:51 Resp 18 07/07/17 08:51 BP 141/80 H 07/07/17 08:51 Pulse Ox 94 07/07/17 08:51 Height: 1.63 m Weight: 61.3 kg - Mental Status Exam Muscle Strength/Tone: Normal Dressing: Casual Grooming: Fair Attitude: Cooperative Motor Activity: Restless Eye Contact: Good Speech: Normal Volume: Normal Rhythm: Appropriate Rhythm Orientation: Oriented X4 Mood: Anxious Affect: Sad, Anxious Rate of Thoughts: Appropriate Rate Thought Organization: Circumstantial, Perseverations (on anxiety) Associations: Intact Abstract Reasoning: Poor abstract reasoning Thought Content: Ruminations, Hopelessness, Helplessness Perception/Psychotic: Psychotic Current Hallucinations: Auditory Language: Naming Intact Fund of Knowledge: Alcira aware current events Memory: Grossly Intact Suicidal Ideation: Denies Homicidal Ideation: Denies Insight: Poor Judgement: Limited Impulse Control: Poor - Laboratory Result Diagrams: 07/07/17 07:08 07/07/17 07:08 Laboratory Results - last 24 hr 07/07/17 07/07/17 07/07/17 07:08 07:08 07:08 WBC 5.3 RBC 3.61 L Hgb 12.0 Hct 36.8 MCV 101.9 H MCH 33.2 MCHC 32.6 RDW Std Deviation 42.8 Plt Count 201 MPV 10.0 Immature Gran % (Auto) 0.2 Neut % (Auto) 71.0 H Lymph % (Auto) 17.7 L Dent % (Auto) 6.8 Eos % (Auto) 3.9 Baso % (Auto) 0.4 Neut # (Auto) 3.8 Lymph # (Auto) 0.9 L Dent # (Auto) 0.4 Eos # (Auto) 0.2 Baso # (Auto) 0.0 Abs Immat Gran (auto) 0.01 Turbidity < 20 Sodium 143 Potassium 4.1 Chloride 104 Carbon Dioxide 31 H Anion Gap 8 BUN 10.0 Creatinine 0.6 L GFR Calculation 98 BUN/Creatinine Ratio 17 Glucose 96 Hemoglobin A1c Cancelled Calculated Osmolality 274 Calcium 9.9 Icterus Index < 2 Triglycerides Cancelled Cholesterol Cancelled LDL Cholesterol, Calc Cancelled VLDL Cholesterol Cancelled HDL Cholesterol Cancelled Cholesterol/HDL Ratio Cancelled Specimen Hemolysis < 15 Assessment and Plan (1) Major depressive disorder, recurrent, severe with psychotic features Problem details: Self-care failure Current visit: Yes Status: Acute (2) Anxiety state, unspecified Problem details: Additional comorbidities: DLDM, HTN, Recent seizure, B12 deficiency Current visit: Yes Status: Acute Continue current care, may consider increase in Abilify to 2mg over the weekend if well-tolerated. Patient needs to develop alternate coping strategies such as mindfulness, deep breathing, etc. Looking into options for placement outside the home. Will administer MOCA today as I do have some concern for neurocognitive disorder that is not yet severe enough to show up on basic testing. Hospital Course Summary Disclaimer: The visit summary below is not to be considered part of the above Progress Note. Hospital Course: 07/06/17 External records reviewed. Monitor BMP; if she develops HTN and/or leg swelling and is drinking fluids well we may consider re-introducing a loop diuretic but will have to monitor Na and K levels. Renal function stable. Her BP was elevated at 164/85 on admission (no other VS yet documented) - monitor trends and consider adding an antihypertensive agent or diuretic. She had B12, folate, and TSH levels checked at [facility] (folate & TSH were normal). Lipid panel was reviewed, normal. Hgb A1c was 5.5%. Medically stable. Depression/anxiety treatment per Attending. Psych 07/06/17: Continue Zoloft 50mg PO daily, Remeron 15mg PO q HS, clonidine 0.1mg PO BID PRN anxiety. Start Abilify 1mg PO daily today as adjunctive tx to SSRI. Psych 07/07/17: Continue current care, may consider increase in Abilify to 2mg over the weekend if well-tolerated. Patient needs to develop alternate coping strategies such as mindfulness, deep breathing, etc. Looking into options for placement outside the home. Will administer MOCA today as I do have some concern for neurocognitive disorder that is not yet severe enough to show up on basic testing.
[2017-07-08] MEDS: POLYETHYL GLYCOL 3350 17gm PACKET PO SCH (08:03)
[2017-07-08] MEDS: LOSARTAN 50 MG TABLET PO SCH ×2 (08:04→20:06)
[2017-07-08] MEDS: CYANOCOBALAMIN (B-12) 500mcg TABLET PO SCH (08:04)
[2017-07-08] MEDS: ARIPiprazole 2 MG TABLET PO SCH (08:04)
[2017-07-08] MEDS: SERTRALINE 50 MG TABLET PO SCH (08:05)
[2017-07-08] MEDS: ASPIRIN 81 MG CHEWABLE TABLET PO SCH (08:05)
--- NOTE | 2017-07-08 10:27 | Neuropsych Progress Note ---
[facility] Subjective Date: 07/08/17 - Sujective/Severity of Illness Medications: Aripiprazole (Abilify) 2 mg PO DAILY [facility] Aspirin (Asa) 81 mg PO DAILY [facility] Last Admin: 07/08/17 08:05 Dose: 81 mg Clonidine HCl (Catapres) 0.1 mg PO BID PRN PRN Reason: Anxiety Last Admin: 07/07/17 16:19 Dose: 0.1 mg Cyanocobalamin (Vit. B-12) 1,000 mcg PO DAILY [facility] Last Admin: 07/08/17 08:04 Dose: 1,000 mcg Haloperidol (Haldol) 0.5 mg PO Q6H PRN PRN Reason: Extreme agitation Haloperidol Lactate (Haldol) 0.5 mg IM Q6H PRN PRN Reason: Extreme agitation Losartan Potassium (Cozaar) 50 mg PO BID [facility] Last Admin: 07/08/17 08:04 Dose: 50 mg Mirtazapine (Remeron) 15 mg PO HS [facility] Last Admin: 07/07/17 20:25 Dose: 15 mg Polyethylene Glycol (Miralax) 17 gm PO DAILY [facility] Last Admin: 07/08/17 08:03 Dose: 17 gm Potassium Chloride (K-Dur 20 Meq Tablet) 20 meq PO BIDBS [facility] Last Admin: 07/08/17 08:03 Dose: 20 meq Sertraline HCl (Zoloft) 50 mg PO DAILY [facility] Last Admin: 07/08/17 08:05 Dose: 50 mg Simvastatin (Zocor) 10 mg PO HS [facility] Last Admin: 07/07/17 20:25 Dose: 10 mg Thiamine HCl (Vitamin B-1) 100 mg PO DAILY [facility] Last Admin: 07/08/17 08:04 Dose: 100 mg Subjective: Patient seen and chart reviewed. Nursing reports pt is doing better. Sleeping well and has a good appetite. On face to face the pt states she is doing better. Mood improving. Has more energy. Son agrees she is looking better and speech is more spontaneous. Denies S/I. Tolerating meds Start Time: 09:30 Stop Time: 09:45 Mental Status Exam Vitals: Last Vital Signs Temp 97.4 F 07/08/17 08:00 Pulse 91 07/08/17 08:00 Resp 18 07/08/17 08:00 BP 149/94 H 07/08/17 08:00 Pulse Ox 96 07/08/17 08:00 Height: 1.63 m Weight: 61.3 kg - Mental Status Exam Muscle Strength/Tone: Normal Dressing: Casual Grooming: Fair Attitude: Cooperative Motor Activity: Normal Eye Contact: Good Speech: Normal Volume: Normal Rhythm: Appropriate Rhythm Orientation: Oriented X4 Mood: Neutral, Anxious Rate of Thoughts: Appropriate Rate Thought Organization: Organized Associations: Intact Abstract Reasoning: Poor abstract reasoning Thought Content: Normal Perception/Psychotic: Perception Normal Language: Naming Intact Fund of Knowledge: Alcira aware current events Memory: Grossly Intact Suicidal Ideation: Denies Homicidal Ideation: Denies Insight: Fair Judgement: Limited Impulse Control: Fair - Laboratory Result Diagrams: 07/07/17 07:08 07/07/17 07:08 Assessment and Plan (1) Major depressive disorder, recurrent, severe with psychotic features Problem details: Self-care failure Current visit: Yes Status: Acute (2) Anxiety state, unspecified Problem details: Additional comorbidities: DLDM, HTN, Recent seizure, B12 deficiency Current visit: Yes Status: Acute Hospital Course Summary Disclaimer: The visit summary below is not to be considered part of the above Progress Note. Hospital Course: 07/06/17 External records reviewed. Monitor BMP; if she develops HTN and/or leg swelling and is drinking fluids well we may consider re-introducing a loop diuretic but will have to monitor Na and K levels. Renal function stable. Her BP was elevated at 164/85 on admission (no other VS yet documented) - monitor trends and consider adding an antihypertensive agent or diuretic. She had B12, folate, and TSH levels checked at [facility] (folate & TSH were normal). Lipid panel was reviewed, normal. Hgb A1c was 5.5%. Medically stable. Depression/anxiety treatment per Attending. 07/07/17 Psych- Pt improving. Increase Abilify to 2mg daily
[2017-07-08] MEDS: AMLODIPINE 2.5 MG TABLET PO SCH (17:33)
[2017-07-08] MEDS: MIRTAZAPINE 15 MG TABLET PO SCH (20:01)
[2017-07-08] MEDS: SIMVASTATIN 10 MG TABLET PO SCH (20:05)
[2017-07-09] MEDS: CYANOCOBALAMIN (B-12) 500mcg TABLET PO SCH (08:15)
[2017-07-09] MEDS: AMLODIPINE 2.5 MG TABLET PO SCH (08:15)
[2017-07-09] MEDS: ARIPiprazole 2 MG TABLET PO SCH (08:15)
[2017-07-09] MEDS: LOSARTAN 50 MG TABLET PO SCH ×2 (08:15→22:06)
[2017-07-09] MEDS: ASPIRIN 81 MG CHEWABLE TABLET PO SCH (08:15)
[2017-07-09] MEDS: POLYETHYL GLYCOL 3350 17gm PACKET PO SCH (08:17)
[2017-07-09] MEDS: SERTRALINE 50 MG TABLET PO SCH (08:17)
--- NOTE | 2017-07-09 12:15 | Neuropsych Progress Note ---
[facility] Subjective Date: 07/09/17 - Sujective/Severity of Illness Medications: Amlodipine Besylate (Norvasc) 2.5 mg PO DAILY [facility] Last Admin: 07/09/17 08:15 Dose: 2.5 mg Aripiprazole (Abilify) 2 mg PO DAILY [facility] Last Admin: 07/09/17 08:15 Dose: 2 mg Aspirin (Asa) 81 mg PO DAILY [facility] Last Admin: 07/09/17 08:15 Dose: 81 mg Clonidine HCl (Catapres) 0.1 mg PO BID PRN PRN Reason: Anxiety Last Admin: 07/07/17 16:19 Dose: 0.1 mg Cyanocobalamin (Vit. B-12) 1,000 mcg PO DAILY [facility] Last Admin: 07/09/17 08:15 Dose: 1,000 mcg Haloperidol (Haldol) 0.5 mg PO Q6H PRN PRN Reason: Extreme agitation Haloperidol Lactate (Haldol) 0.5 mg IM Q6H PRN PRN Reason: Extreme agitation Losartan Potassium (Cozaar) 50 mg PO BID [facility] Last Admin: 07/09/17 08:15 Dose: 50 mg Mirtazapine (Remeron) 15 mg PO HS [facility] Last Admin: 07/08/17 20:01 Dose: 15 mg Polyethylene Glycol (Miralax) 17 gm PO DAILY [facility] Last Admin: 07/09/17 08:17 Dose: 17 gm Potassium Chloride (K-Dur 20 Meq Tablet) 20 meq PO BIDBS [facility] Last Admin: 07/09/17 08:17 Dose: 20 meq Sertraline HCl (Zoloft) 50 mg PO DAILY [facility] Last Admin: 07/09/17 08:17 Dose: 50 mg Simvastatin (Zocor) 10 mg PO HS [facility] Last Admin: 07/08/17 20:05 Dose: 10 mg Thiamine HCl (Vitamin B-1) 100 mg PO DAILY [facility] Last Admin: 07/09/17 08:17 Dose: 100 mg Subjective: Patient seen and chart reviewed. Nursing reports pt is doing fairly well. Sleeping well and has a good appetite. On face to face the pt is seen with her daughter. Pt states she is more anxious today. She states her and her daughter are talking about discharge planning and the uncertainty makes her anxious. She states she has some depression but states she feels the anxiety is the otr driver of this. She has poor short term memory but it is unclear if this is her memory or just anxiety. She denies any S/I. Tolerating meds Start Time: 11:00 Stop Time: 11:15 Mental Status Exam Vitals: Last Vital Signs Temp 97.2 F 07/09/17 08:14 Pulse 95 07/09/17 08:14 Resp 18 07/09/17 08:14 BP 152/88 H 07/09/17 08:14 Pulse Ox 96 07/08/17 19:55 Height: 1.63 m Weight: 61.3 kg - Mental Status Exam Muscle Strength/Tone: Normal Dressing: Casual Grooming: Fair Attitude: Cooperative Motor Activity: Normal Eye Contact: Good Speech: Normal Volume: Normal Rhythm: Appropriate Rhythm Orientation: Oriented X4 Mood: Neutral, Anxious Rate of Thoughts: Appropriate Rate Thought Organization: Organized Associations: Intact Abstract Reasoning: Poor abstract reasoning Thought Content: Normal Perception/Psychotic: Perception Normal Current Hallucinations: Auditory Language: Naming Intact Fund of Knowledge: Alcira aware current events Memory: Grossly Intact Suicidal Ideation: Denies Homicidal Ideation: Denies Insight: Fair Judgement: Limited Impulse Control: Fair - Laboratory Result Diagrams: 07/07/17 07:08 07/07/17 07:08 Assessment and Plan (1) Major depressive disorder, recurrent, severe with psychotic features Problem details: Self-care failure Current visit: Yes Status: Acute (2) Anxiety state, unspecified Problem details: Additional comorbidities: DLDM, HTN, Recent seizure, B12 deficiency Current visit: Yes Status: Acute Hospital Course Summary Disclaimer: The visit summary below is not to be considered part of the above Progress Note. Hospital Course: 07/06/17 External records reviewed. Monitor BMP; if she develops HTN and/or leg swelling and is drinking fluids well we may consider re-introducing a loop diuretic but will have to monitor Na and K levels. Renal function stable. Her BP was elevated at 164/85 on admission (no other VS yet documented) - monitor trends and consider adding an antihypertensive agent or diuretic. She had B12, folate, and TSH levels checked at [facility] (folate & TSH were normal). Lipid panel was reviewed, normal. Hgb A1c was 5.5%. Medically stable. Depression/anxiety treatment per Attending. 07/07/17 Psych- Pt improving. Increase Abilify to 2mg daily 07/09/17 Pt slightly more anxious today. Denies S/I. Continue current care
[2017-07-09] MEDS: MIRTAZAPINE 15 MG TABLET PO SCH (22:06)
[2017-07-09] MEDS: SIMVASTATIN 10 MG TABLET PO SCH (22:06)
[2017-07-10] MEDS: ASPIRIN 81 MG CHEWABLE TABLET PO SCH (08:28)
[2017-07-10] MEDS: POLYETHYL GLYCOL 3350 17gm PACKET PO SCH (08:28)
[2017-07-10] MEDS: ARIPiprazole 2 MG TABLET PO SCH (08:28)
[2017-07-10] MEDS: CYANOCOBALAMIN (B-12) 500mcg TABLET PO SCH (08:29)
[2017-07-10] MEDS: AMLODIPINE 2.5 MG TABLET PO SCH (08:29)
[2017-07-10] MEDS: SERTRALINE 50 MG TABLET PO SCH (08:29)
[2017-07-10] MEDS: LOSARTAN 50 MG TABLET PO SCH ×2 (08:30→21:47)
--- NOTE | 2017-07-10 11:02 | Progress Note ---
- Date 07/10/17 Subjective: Radha is seen this morning in follow-up. While sitting in the day room watching television. She is alert, oriented and pleasant and denies having pain or feeling short of breath. She states overall she is feeling good. Chart reviewed- Bp 150/91 today. Objective Vital signs: Temperature 96.9 F 07/10/17 08:26 Pulse Rate 101 H 07/10/17 08:26 Respiratory Rate 18 07/10/17 08:26 Blood Pressure 150/91 H 07/10/17 08:26 Pulse Oximetry 94 07/10/17 08:26 Height/Weight/BMI: Height 1.63 m Weight 61.3 kg Body Mass Index 23.1 - Constitutional Present: no acute distress, well nourished, well developed - Routine HEENT Exam Eye: Present: EOMI ENT: Present: mucous membranes moist, dentition normal - Routine Respiratory Exam Present: CTA bilaterally. Absent: wheezes - Routine Cardiovascular Exam Present: RRR, S1, S2. Absent: murmur - Routine Abdominal Exam Present: soft, normoactive bowel sounds, non distended. Absent: tenderness - Routine Extremities Exam Present: normal capillary refill - Routine Back/Spine/Pelvis Exam Back/Spine: Present: full ROM - Routine Skin Exam Present: intact, dry, warm - Routine Neurological Exam Present: alert, oriented X3, CN II-XII intact, moving all extremities - Routine Lymphatic Exam Lymphatic: Absent: adenopathy - Routine Psychiatric Exam Present: normal affect, cooperative Results - Labs CBC & Chem 7: 07/07/17 07:08 07/07/17 07:08 Assessment and Plan Assessment and Plan: IMPRESSION Depression, anxiety Recent hyponatremia, hypokalemia - diuretic dc'd Ecchymosis to left mandible, POA Seizure on 07/02/17 - EEG negative B12 deficiency (B12 344 at [facility]) History of rheumatic fever MVP HTN Dyslipidemia Insomnia Breast cancer PLAN Medical record reviewed. Will increase Norvasc to 5 mg daily for better blood pressure control Otherwise she appears to be medically stable Encourage participation in unit activities Resuscitation Status: Full Code - Physician Narrative Narrative: Date: 07/10/17 Time: 1037 Hospital Course Summary Disclaimer: The visit summary below is not to be considered part of the above Progress Note. Hospital Course: 07/06/17 External records reviewed. Monitor BMP; if she develops HTN and/or leg swelling and is drinking fluids well we may consider re-introducing a loop diuretic but will have to monitor Na and K levels. Renal function stable. Her BP was elevated at 164/85 on admission (no other VS yet documented) - monitor trends and consider adding an antihypertensive agent or diuretic. She had B12, folate, and TSH levels checked at [facility] (folate & TSH were normal). Lipid panel was reviewed, normal. Hgb A1c was 5.5%. Medically stable. Depression/anxiety treatment per Attending. 07/07/17 Psych- Pt improving. Increase Abilify to 2mg daily 07/09/17 Pt slightly more anxious today. Denies S/I. Continue current care
[2017-07-10] MEDS ORDERED: AMLODIPINE 2.5 MG TABLET PO ONE (11:07)
[2017-07-10] MEDS: AMLODIPINE 5 MG TABLET PO SCH (12:14)
[2017-07-10 15:52] VITALS: O2SAT 96
--- NOTE | 2017-07-10 16:47 | Neuropsych Progress Note ---
[facility] Subjective Date: 07/10/17 - Sujective/Severity of Illness Medications: Amlodipine Besylate (Norvasc) 5 mg PO DAILY [facility] Last Admin: 07/10/17 12:14 Dose: Not Given Aripiprazole (Abilify) 2 mg PO DAILY [facility] Last Admin: 07/10/17 08:28 Dose: 2 mg Aspirin (Asa) 81 mg PO DAILY [facility] Last Admin: 07/10/17 08:28 Dose: 81 mg Clonidine HCl (Catapres) 0.1 mg PO BID PRN PRN Reason: Anxiety Last Admin: 07/07/17 16:19 Dose: 0.1 mg Cyanocobalamin (Vit. B-12) 1,000 mcg PO DAILY [facility] Last Admin: 07/10/17 08:29 Dose: 1,000 mcg Haloperidol (Haldol) 0.5 mg PO Q6H PRN PRN Reason: Extreme agitation Haloperidol Lactate (Haldol) 0.5 mg IM Q6H PRN PRN Reason: Extreme agitation Losartan Potassium (Cozaar) 50 mg PO BID [facility] Last Admin: 07/10/17 08:30 Dose: 50 mg Mirtazapine (Remeron) 15 mg PO HS [facility] Last Admin: 07/09/17 22:06 Dose: 15 mg Polyethylene Glycol (Miralax) 17 gm PO DAILY [facility] Last Admin: 07/10/17 08:28 Dose: 17 gm Potassium Chloride (K-Dur 20 Meq Tablet) 20 meq PO BIDBS [facility] Last Admin: 07/10/17 08:29 Dose: 20 meq Sertraline HCl (Zoloft) 50 mg PO DAILY [facility] Last Admin: 07/10/17 08:29 Dose: 50 mg Simvastatin (Zocor) 10 mg PO HS [facility] Last Admin: 07/09/17 22:06 Dose: 10 mg Thiamine HCl (Vitamin B-1) 100 mg PO DAILY [facility] Last Admin: 07/10/17 08:30 Dose: 100 mg Subjective: Patient seen and chart reviewed. Case discussed with treatment team. On interview, patient states she feels "a little anxious and shaky," but feels ready to go home. Patient denies any SI, HI or AVH. Patient denies any adverse side effects related to psychotropic medications. She had many questions about her med regimen and says she has been trying to learn relaxation techniques, such as yoga, but is struggling with motivation (I expect executive dysfunction may be a part of this as well). Nursing staff report patient had some anxiety regarding visitors but otherwise seems to be less anxious upon admission, with no significant behavioral difficulties. Patient has been adherent with medications. Patient slept 7.5 hours overnight. VSS. Patient is eating well. Psychotropic PRNs required in the past 24 hours: none. Start Time: 10:00 Stop Time: 10:20 Mental Status Exam Vitals: Last Vital Signs Temp 98.8 F 07/10/17 15:51 Pulse 107 H 07/10/17 15:51 Resp 16 07/10/17 15:51 BP 142/79 H 07/10/17 15:51 Pulse Ox 96 07/10/17 15:51 Height: 1.63 m Weight: 61.3 kg - Mental Status Exam Muscle Strength/Tone: Normal Dressing: Casual Grooming: Fair Attitude: Cooperative Motor Activity: Normal Eye Contact: Good Speech: Normal Volume: Normal Rhythm: Appropriate Rhythm Orientation: Oriented X4 Mood: Neutral, Anxious ("a little") Affect: Anxious (much improved from admission) Rate of Thoughts: Appropriate Rate Thought Organization: Organized Associations: Intact Abstract Reasoning: Poor abstract reasoning Thought Content: Other (anxiety about various things, doesn't want to be a burden on daughter) Perception/Psychotic: Hx psychosis, not current Language: Naming Intact Fund of Knowledge: Other (decreased from baseline, MOCA 23/30 on 07/07/17) Memory: Grossly Intact Suicidal Ideation: Denies Homicidal Ideation: Denies Insight: Fair Judgement: Limited Impulse Control: Fair - Laboratory Result Diagrams: 07/07/17 07:08 07/07/17 07:08 Assessment and Plan (1) Major depressive disorder, recurrent, severe with psychotic features Problem details: Self-care failure Current visit: Yes Status: Acute (2) Anxiety state, unspecified Problem details: Additional comorbidities: DLDM, HTN, Recent seizure, B12 deficiency Current visit: Yes Status: Acute Increase Zoloft to 100mg PO daily; plan for discharge home with daughter on until placement can be arranged. Hospital Course Summary Disclaimer: The visit summary below is not to be considered part of the above Progress Note. Hospital Course: 07/06/17 External records reviewed. Monitor BMP; if she develops HTN and/or leg swelling and is drinking fluids well we may consider re-introducing a loop diuretic but will have to monitor Na and K levels. Renal function stable. Her BP was elevated at 164/85 on admission (no other VS yet documented) - monitor trends and consider adding an antihypertensive agent or diuretic. She had B12, folate, and TSH levels checked at [facility] (folate & TSH were normal). Lipid panel was reviewed, normal. Hgb A1c was 5.5%. Medically stable. Depression/anxiety treatment per Attending. 07/07/17 Psych- Pt improving. Increase Abilify to 2mg daily 07/09/17 Pt slightly more anxious today. Denies S/I. Continue current care. 07/10/17 Psych: Increase Zoloft to 100mg PO daily; plan for discharge home with daughter on 07/11 until placement can be arranged.
[2017-07-10] MEDS: SIMVASTATIN 10 MG TABLET PO SCH (21:47)
[2017-07-10] MEDS: MIRTAZAPINE 15 MG TABLET PO SCH (21:47)
[2017-07-11 08:28] VITALS: BP 142/86; PULSE 96; RESP 20; TEMP 98
[2017-07-11] MEDS: ARIPiprazole 2 MG TABLET PO SCH (08:29)
[2017-07-11] MEDS: ASPIRIN 81 MG CHEWABLE TABLET PO SCH (08:29)
[2017-07-11] MEDS: AMLODIPINE 5 MG TABLET PO SCH (08:29)
[2017-07-11] MEDS: POLYETHYL GLYCOL 3350 17gm PACKET PO SCH (08:30)
[2017-07-11] MEDS: CYANOCOBALAMIN (B-12) 500mcg TABLET PO SCH (08:30)
--- NOTE | 2017-07-11 08:36 | Neuropsych Progress Note ---
[facility] Subjective Date: 07/12/17 - Sujective/Severity of Illness Medications: Amlodipine Besylate (Norvasc) 5 mg PO DAILY [facility] Last Admin: 07/11/17 08:29 Dose: 5 mg Aripiprazole (Abilify) 2 mg PO DAILY [facility] Last Admin: 07/11/17 08:29 Dose: 2 mg Aspirin (Asa) 81 mg PO DAILY [facility] Last Admin: 07/11/17 08:29 Dose: 81 mg Clonidine HCl (Catapres) 0.1 mg PO BID PRN PRN Reason: Anxiety Last Admin: 07/07/17 16:19 Dose: 0.1 mg Cyanocobalamin (Vit. B-12) 1,000 mcg PO DAILY [facility] Last Admin: 07/11/17 08:30 Dose: 1,000 mcg Haloperidol (Haldol) 0.5 mg PO Q6H PRN PRN Reason: Extreme agitation Haloperidol Lactate (Haldol) 0.5 mg IM Q6H PRN PRN Reason: Extreme agitation Losartan Potassium (Cozaar) 50 mg PO BID [facility] Last Admin: 07/10/17 21:47 Dose: 50 mg Mirtazapine (Remeron) 15 mg PO HS [facility] Last Admin: 07/10/17 21:47 Dose: 15 mg Polyethylene Glycol (Miralax) 17 gm PO DAILY [facility] Last Admin: 07/11/17 08:30 Dose: 17 gm Potassium Chloride (K-Dur 20 Meq Tablet) 20 meq PO BIDBS [facility] Last Admin: 07/11/17 08:29 Dose: 20 meq Sertraline HCl (Zoloft) 100 mg PO DAILY [facility] Last Admin: 07/11/17 08:30 Dose: 100 mg Simvastatin (Zocor) 10 mg PO HS [facility] Last Admin: 07/10/17 21:47 Dose: 10 mg Thiamine HCl (Vitamin B-1) 100 mg PO DAILY [facility] Last Admin: 07/11/17 08:31 Dose: 100 mg Subjective: Patient seen and chart reviewed. Case discussed with treatment team. On interview, patient states she feels "a little anxious" but feels ready to go home. She has limited insight into improvement on the unit. She wanted more individual therapy but I reminded her how difficult this would have been in the anxious state she was in at the time of admission. Patient denies any SI, HI or AVH. Patient denies any adverse side effects related to psychotropic medications. Nursing staff report patient has had no significant behavioral difficulties. Patient has been adherent with medications. Patient slept 7.5 hours overnight. VSS. Patient is eating well. Psychotropic PRNs required in the past 24 hours: none. Start Time: 09:00 Stop Time: 09:20 Mental Status Exam Vitals: Last Vital Signs Temp 98 F 07/11/17 08:00 Pulse 96 07/11/17 08:00 Resp 20 07/11/17 08:00 BP 142/86 H 07/11/17 08:00 Pulse Ox 96 07/11/17 08:00 Height: 1.63 m Weight: 61.3 kg - Mental Status Exam Muscle Strength/Tone: Normal Dressing: Casual Grooming: Fair Attitude: Cooperative Motor Activity: Normal Eye Contact: Good Speech: Normal Volume: Normal Rhythm: Appropriate Rhythm Orientation: Oriented X4 Mood: Neutral, Anxious ("a little") Affect: Relaxed (much moreso than upon admission) Rate of Thoughts: Appropriate Rate Thought Organization: Organized (mostly) Associations: Intact Abstract Reasoning: Poor abstract reasoning Thought Content: Other (anxiety about various things though significantly improved from admission) Perception/Psychotic: Hx psychosis, not current Current Hallucinations: Auditory Language: Naming Intact Fund of Knowledge: Other (decreased from baseline, MOCA 23/30 on 07/07/17) Memory: Grossly Intact Suicidal Ideation: Denies Homicidal Ideation: Denies Insight: Limited Judgement: Limited Impulse Control: Fair - Laboratory Result Diagrams: 07/07/17 07:08 07/07/17 07:08 Assessment and Plan (1) Major depressive disorder, recurrent, severe with psychotic features Problem details: Self-care failure Status: Acute (2) Anxiety state, unspecified Problem details: Additional comorbidities: DLDM, HTN, Recent seizure, B12 deficiency Status: Acute Patient to f/u with Dr. Huynh at [place] on 07/12/17; I contacted him describing nature of patient's symptoms and recent med changes. I also sent a copy of recent MOCA with deficits so that he may track this over time if needed. Also referred for additional neuropsych testing which may be more specific as to cognitive deficits. Plan to discharge to home with daughter today. Hospital Course Summary Disclaimer: The visit summary below is not to be considered part of the above Progress Note. Hospital Course: 07/06/17 External records reviewed. Monitor BMP; if she develops HTN and/or leg swelling and is drinking fluids well we may consider re-introducing a loop diuretic but will have to monitor Na and K levels. Renal function stable. Her BP was elevated at 164/85 on admission (no other VS yet documented) - monitor trends and consider adding an antihypertensive agent or diuretic. She had B12, folate, and TSH levels checked at [facility] (folate & TSH were normal). Lipid panel was reviewed, normal. Hgb A1c was 5.5%. Medically stable. Depression/anxiety treatment per Attending. 07/07/17 Psych- Pt improving. Increase Abilify to 2mg daily 07/09/17 Pt slightly more anxious today. Denies S/I. Continue current care. 07/10/17 Psych: Increase Zoloft to 100mg PO daily; plan for discharge home with daughter on 07/11 until placement can be arranged. 07/11/17 Psych: Patient to f/u with Dr. Huynh at [place] on 07/12/17; I contacted him describing nature of patient's symptoms and recent med changes. I also sent a copy of recent MOCA with deficits so that he may track this over time if needed. Also referred for additional neuropsych testing which may be more specific as to cognitive deficits. Plan to discharge to home with daughter today. Have expressed concerns with patient driving due to visuospatial deficits as well as concern with med mangaement given STM deficits. Daughter reports she plans to stay with patient until she can find placement.
[2017-07-11] MEDS: LOSARTAN 50 MG TABLET PO SCH (08:46)
[2017-07-11] MEDS ORDERED: SERTRALINE 100 MG TABLET PO SCH (09:00)
--- NOTE | 2017-07-11 14:44 | Neuropsychiatric Disch Summary ---
Discharge Information Date of admission: 07/05/17 20:21 Anticipated date of discharge: 07/11/17 Attending Physician: Shey Richey MD Primary care physician: Ha Jimenez Consults: 07/05/17 20:53 Case Management Consult [CONS] Routine Reason For Exam: Medical comorbidities Physician Consult [CONS] Routine Consulting Provider: Rashaad Munson Reason For Exam: Medical comorbidities Ordering Provider has Notified Welt Beater: No Comment: Nursing - please notify - Discharge Diagnosis (1) Major depressive disorder, recurrent, severe with psychotic features Status: Acute (2) Anxiety state, unspecified Status: Acute Neurocognitive disorder, NOS (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 On interview, patient is anxious, ruminative and circumstantial. She says she feels she in a hole and she can't get out. She doesn't feel that it is safe for her to return home in this state and she is open to additional options, such as [place]. 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 She has asked neighbors to do her shopping. When she has gone out with friends, she cannot even make a decision about what to eat off the menu. She is scared to drive because of her medications and thus rarely leaves the house. Patient was seen by Dr. Foster (C/L psychiatrist) while at [facility] and reported the following: "Patient is a 72 years old female brought to the hospital due to altered mental status. She came in Monday after her doctor saw her BP was 200/100 and she was confused. He thought there was a risk of stroke. She was seeing her pain doctor and needed to pee in a cup and was nervous about it. She was shaking very bad. She states her anxiety and depression has been very severe lately in the past couple of months. Yesterday, she fell out of bed at noon and had a seizure. She hit her chin and bit her tongue. Nobody witnessed it and the nurse found her face down, blue, and foaming at mouth. The code team was called and gave her O2 and she was fine. She denies having a seizure before and doesn't remember anything afterwards. STRESSORS: Her main stressor has been dealing with her having a stroke a year ago and being in rehab and now a manager long term care facility. He also has left sided deficits and memory problems. He usually took care of her, the house, and the bills. At [place], she came to terms that he may never come back home and it depresses her to go see him. He also got worse in Jun and her anxiety has increased from that as well. She gets anxious when she has to go outside even to the mailbox because there might be bills to pay. PSYCHIATRIC HX: Does not currently have a psychiatrist. She sees a therapist at [facility] 1x/week. States she has a previous diagnosis of Depression and Anxiety. She was on Zoloft a few years ago after having an episode of depression and stopped taking it after she was discharged. She currently gets Pristiq for her Depression and Temazepam for Insomnia from her pain multimedia assistant. She has been on Pristiq since 2016. She gets Xanax for Anxiety from her PCP and has been taking that since May 2017. She last took her Xanax 3 days ago and her PCP stopped it because it wasn't working. She usually took 1-3x/day. She feels like the Prisitq and Xanax have been ineffective so far. She describes her Depression as a 10/10 and Anxiety 10/10 with 10 being the most severe. She doesn't want to go outside and gets panic attacks where her heart is pounding if she has to go outside. She also gets really anxious if people are at the door or if she has to go to her mailbox. She doesn't want to do anything lately and describes anhedonia where she doesn't enjoy things she used to. She states that taking the Temazepam is the best part of her day because she can just sleep. She also endorses a lack of motivation, poor concentration, low mood since Xmas, guilt, and hopelessness. She also endorses some paranoia and hears noises outside at night. She later admits that she sometimes neglects self care and doesn't eat or go outside because she worries a lot. She seems to imagine the worst possible scenario occurring. Denies AVH. Denies SI/HI. Per family: Daughter and niece state patient has not been herself for about a year and she has been getting worse. She had a drastic decline in concentration and daily functioning that has been getting worse. She is more forgetful and less active. She used to function very well in the past and went to [facility] by herself last year. They feel like her medications aren't working. They also wanted her to switch therapist to [place]. Per nurse: No problems overnight. Patient denies manic symptoms or symptoms consistent with OCD. Patient denies history of suicidal attempt or suicidal ideation. Patient denies history of self-mutilating non-suicidal behavior. Patient denies history of violence towards others. Perception: endorses auditory hallucinations of noises at night. paranoid delusions and catastrophizing. UA: unremarkable UDS: Benzo TSH: 2.13 B12: 344 Folate: 13.6" CT Head or Brain w/o Contrast 07/02/17 14:08:57 IMPRESSION: 1. Chronic microvascular changes within the white matter, as demonstrated on previous MRI. No CT evidence of an acute intracranial abnormality is demonstrated. MRI Brain w/ + w/o Contrast 06/30/17 23:14:34 IMPRESSION: 1: There is no evidence of acute cerebral infarction, intracranial hemorrhage, hydrocephalus, or enhancing mass. 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 EKG 07/02/17: SR, 87bpm, QTc 438 SLUMS 3/5/18 27/30; Patient missed two from recall and 1 from serial backwards 1. Self care failure 2. Major Depressive Disorder, recurrent, severe, with psychotic features 3. Unspecified Anxiety Disorder 4. DLDM, HTN, Recent seizure, B12 deficiency" Hospital Course This is a general summary of the patient's hospital course. For more details refer to the complete medical record. Hospital course: 07/06/17 External records reviewed. Monitor BMP; if she develops HTN and/or leg swelling and is drinking fluids well we may consider re-introducing a loop diuretic but will have to monitor Na and K levels. Renal function stable. Her BP was elevated at 164/85 on admission (no other VS yet documented) - monitor trends and consider adding an antihypertensive agent or diuretic. She had B12, folate, and TSH levels checked at [facility] (folate & TSH were normal). Lipid panel was reviewed, normal. Hgb A1c was 5.5%. Medically stable. Depression/anxiety treatment per Attending. Psych: On admission, continued Remeron 15mg PO q HS and Zoloft 50mg PO daily as started at [facility]. We have completely discontinued Pristiq at this point. After discussion with patient/daughter, started Abilify 1mg PO daily as adjunct to SSRI and also due to paranoia accompanying depression. 07/07/17 Psych- Pt improving. Increase Abilify to 2mg daily 07/09/17 Pt slightly more anxious today. Denies S/I. Continue current care. 07/10/17 Psych: Increase Zoloft to 100mg PO daily; plan for discharge home with daughter on 07/11 until placement can be arranged. 07/11/17 Psych: Discontinued PRN clonidine as patient has not used it in several days. Patient to f/u with Dr. Huynh at [place] on 07/12/17; I contacted him describing nature of patient's symptoms and recent med changes. I also sent a copy of recent MOCA with deficits so that he may track this over time if needed. Also referred for additional neuropsych testing which may be more specific as to cognitive deficits. Plan to discharge to home with daughter today. Have expressed concerns with patient driving due to visuospatial deficits as well as concern with med mangaement given STM deficits. Daughter reports she plans to stay with patient until she can find placement. Resuscitation Status: Full Code Discharge Plan - Med Rec/Dispo Referrals/Follow Up: [facility] [Provider Group] Audrey Huynh on 07/12/17 at 9:00 am for Med Management. . OLINDA ReyesZeke on 07/18/17 at 10:00 am for Therapy. . OLINDA ReyesZeke on 07/25/17 at 10:00 am for Theraphy. Samuel [facility]ham [phone] [address] [place] [id number]) Ha Jimenez [Family Provider] - (Dr. Edinson Jimenez on 07/24/17 at 10:30 am for Hosp. follow-up. [facility] [address] [place] [address]) Additional Instructions: IN CASE OF PSYCHIATRIC EMERGENCY, CONTACT GENERATIONS STAFF AT [phone] ( availlable 24 hrs daily). Prescriptions: New ARIPiprazole [Abilify] 2 mg PO DAILY 30 Days #30 tab Mirtazapine [Remeron] 15 mg PO HS 30 Days #30 tab Sertraline [Zoloft] 100 mg PO DAILY 30 Days #30 tab Amlodipine [Norvasc] 5 mg PO DAILY #30 tab Continue Simvastatin [Zocor] 10 mg PO DAILY Aspirin 1 tab PO DAILY Potassium Chloride 20 meq PO BID Polyethylene Glycol 3350 17 gm PO DAILY Losartan [Cozaar] 50 mg PO BID Thiamine [Vitamin B-1] 100 mg PO DAILY Cyanocobalamin (Vitamin B-12) [Vitamin B-12] 1 tab PO DAILY Discontinued CloNIDine [Catapres] 1 tab PO BID PRN PRN Reason: Anxiety Temazepam [Restoril] 15 mg PO HS PRN PRN Reason: Sleeplessness Desvenlafaxine Succinate [Pristiq ER] 50 mg PO DAILY Sertraline HCl [Zoloft] 50 mg PO DAILY LORazepam [Ativan] 0.5 mg PO BID - Disposition 01 Discharged Home, Self-Care - Dismissal Complete Discharge Instructions are:: Complete
== END 2017-07-11 13:20 | disposition home or self-care (01) | DRG 885 ==
LOC: GEN 20:21
PROVIDERS: ADMIT Psychiatry & Neurology Psychiatry; ATTEND Psychiatry & Neurology Psychiatry